=== PATIENT | male | born 1930 | race Caucasian/White ===

== ENCOUNTER → 2020-01-15 | Outpatient (CLI) | payer MEDICARE ==
[2020-01-15 07:33] LABS: MEAN CORP HGB 31.5 pg (26-34); RED CELL DISTRIBUTION WIDTH 17.4 % (11.5-14.5)
[2020-01-15 07:35] LABS: CALCIUM 8.3 mg/dL (8.4-10.5); CARBON DIOXIDE 26.2 mmol/L (20.0-32)
== END | disposition home or self-care (01) ==
LOC: NPLAB 07:11
PROVIDERS: ATTEND Family Medicine
DX: U07.1 COVID-19 (principal); I48.91 Unspecified atrial fibrillation; N17.9 Acute kidney failure, unspecified
CPT/HCPCS: 36415; 80053; 85027

== ENCOUNTER → 2020-01-18 | Outpatient (CLI) | payer MEDICARE ==
[2020-01-18 17:15] LABS: CALCIUM 7.9 mg/dL (8.4-10.5); CARBON DIOXIDE 25.5 mmol/L (20.0-32)
== END | disposition home or self-care (01) ==
LOC: NPLAB 15:00
PROVIDERS: ATTEND Family Medicine
DX: U07.1 COVID-19 (principal)
CPT/HCPCS: 36415; 80053

== ENCOUNTER → 2020-01-22 | Outpatient (CLI) | payer MEDICARE ==
[2020-01-22 11:20] LABS: MEAN CORP HGB 31.5 pg (26-34); RED CELL DISTRIBUTION WIDTH 17.1 % (11.5-14.5)
[2020-01-22 11:56] LABS: CALCIUM 8.2 mg/dL (8.4-10.5); CARBON DIOXIDE 28.3 mmol/L (20.0-32)
== END | disposition home or self-care (01) ==
LOC: NPLAB 11:01
PROVIDERS: ATTEND Family Medicine
DX: U07.1 COVID-19 (principal); N17.9 Acute kidney failure, unspecified
CPT/HCPCS: 36415; 80053; 85027

== ENCOUNTER → 2020-02-11 | Outpatient (CLI) | payer MEDICARE ==
[2020-02-11 17:18] LABS: MEAN CORP HGB 32.1 pg (26-34); RED CELL DISTRIBUTION WIDTH 18.7 % (11.5-14.5)
[2020-02-11 17:37] LABS: CALCIUM 9.1 mg/dL (8.4-10.5); CARBON DIOXIDE 33.3 mmol/L (20.0-32)
== END | disposition home or self-care (01) ==
LOC: NPLAB 16:27
PROVIDERS: ATTEND Family Medicine
DX: I50.9 Heart failure, unspecified (principal); N17.9 Acute kidney failure, unspecified
CPT/HCPCS: 36415; 80053; 85027

== ENCOUNTER → 2020-03-09 | Outpatient (CLI) | payer MEDICARE ==
[2020-03-09 15:49] LABS: APPEARANCE,URINE CLEAR (CLEAR); BILIRUBIN,URINE NEGATIVE (NEGATIVE); UA COLOR YELLOW (YELLOW)
[2020-03-09 15:50] LABS: UROBILINOGEN,URINE NORMAL (NEGATIVE)
== END | disposition home or self-care (01) ==
LOC: NPLAB 13:00
PROVIDERS: ATTEND Family Medicine
DX: N39.0 Urinary tract infection, site not specified (principal)
CPT/HCPCS: 81003

== ENCOUNTER 2020-03-13 17:53 | Inpatient (IN) | payer MEDICARE ==
[~2020-03-13] VITALS: Ht 182.9 cm; Wt 90.3 kg
--- NOTE | 2020-03-13 18:15 | NUR ---
ARRIVAL PT TO ROOM 3 VIA EMS TRANSFERRED FROM [facility] FOR ABNORMAL LABS. PER REPORT FROM CT. HGB 6.5 POTASSIUM 3.1. PT HAS PURPLE BRUISING ALL OVER BACK NUMEROUS SKIN TEARS ON RIGHT ARM AND RIGHT SHOULDER BLADE. PT HAS PRESSURE ULCER TO LEFT HEEL BLACK SCAB OVER. PT BUTTOCKS AND SACRAL AREA PINK. PT PLACED ON LEFT SIDE TO ALLEVIATE PRESSURE. PT HAS A PIMENTEL CATHETER WITH TALYA YELLOW URINE DRAINING. PT HAD A RAC 20G IV REMOVED WHEN PT ARRIVED NOT WORKING. 18G IV PLACED IN [facility] LABS DRAWN PT PLACED ON ROD AND TUBE STRAIGHTENER. EKG OBTAINED. AT BEDSIDE. PT A/OX2
[2020-03-13 18:17] VITALS: BP 119/78
--- NOTE | 2020-03-13 18:26 | ER.PDOC ---
General Chief Complaint: Requesting Medical Care Stated Complaint: ABNORMAL LABS TRAVEL OUT OF US: No Time seen by MD: 18:20 Source: patient, EMS, EMS notes reviewed, senior care records Exam Limitations: no limitations History of Present Illness Initial Comments Low hemoglobin and potassium at the [facility] on routine labs. Severity: moderate Associated Symptoms: denies symptoms Home Meds Reported Medications Apixaban (Eliquis) 5 Mg Tablet, 2.5 MG PO BID for A FIB, TABLET 03/13/20 Gabapentin (GABAPENTIN) 100 Mg Capsule, 1 CAP PO BID for PAIN, #90 CAP 2 Refills 03/13/20 Ascorbic Acid (VITAMIN C) 500 Mg Tablet, 500 MG PO BID 03/13/20 Ferrous Sulfate (FERROUSUL) 325 Mg Tablet, 1 TAB PO QD for 30 Days, #30 TAB 0 Refills 03/13/20 Sertraline Hcl (ZOLOFT) 25 Mg Tablet, 1 TAB PO DAILY, #30 TAB 1 Refill 03/13/20 Pantoprazole Sodium (PROTONIX) 40 Mg Tablet.dr, 1 TAB PO DAILY, #30 TAB 5 Refills 03/13/20 Lactobacillus Acidophilus (ACIDOPHILUS) 1 Each Capsule, 1 CAP PO QD for 14 Days, #14 CAP 0 Refills 03/13/20 Simvastatin (SIMVASTATIN) 20 Mg Tablet, 1 TAB PO HS, #30 TAB 5 Refills 03/13/20 Tamsulosin Hcl (FLOMAX) 0.4 Mg Cap.er.24h, 1 CAP PO DAILY, #30 CAP 11 Refills 03/13/20 Zinc (ZINC) 50 Mg Tablet, 1 TAB PO QD for 30 Days, #30 TAB 0 Refills 03/13/20 Electrolyte,Oral (PEDIALYTE) 1,000 Ml Solution, 240 MILLILITER PO DAILY24, #2000 MILLILITER 03/13/20 Metolazone (ZAROXOLYN) 5 Mg Tablet, 5 MG PO DAILY24, TABLET 03/13/20 Bumetanide (BUMETANIDE) 1 Mg Tablet, 1 TAB PO DAILY, #90 TAB 1 Refill 03/13/20 Past Medical History Medical History: cardiac problems, congestive heart failure Family History Significant Family History: no pertinent family hx Social History Smoking: non-smoker Alcohol Use: none Drug Use: none Review of Systems Constitutional: no symptoms reported EENTM: no symptoms reported Respiratory: no symptoms reported Cardiovascular: edema Gastrointestinal: no symptoms reported Genitourinary: no symptoms reported All Other Systems: Reviewed and Negative Physical Exam General Appearance: No Apparent Distress, WD/WN EENT: other (Pale conjunctivae) Neck: Non-Tender, Full Range of Motion, Supple, Normal Inspection Respiratory: chest non-tender, lungs clear, normal breath sounds, no respiratory distress, no accessory muscle use CVS: reg rate & rhythm, no murmur, pulses nml, nml capillary refill, murmur Gastrointestinal: Normal Bowel Sounds, No Organomegaly, No Pulsatile Mass, Non Tender Back: Normal Inspection Extremities: Normal Range of Motion, Pedal Edema (4+) Neurologic/Psychiatric: aviculturist II-XII NML as Tested, No Motor/Sensory Deficits, Alert, Normal Mood/Affect Skin: Ecchymosis (back), Other (left heel decubitus ulcer) Results/Orders Results/Orders Orders - ED GARCIA MD Cbc With Auto Diff (03/13/20 18:16) Comprehensive Metabolic Panel (03/13/20 18:16) Creatine Kinase (03/13/20 18:16) Creatine Kinase Mb (03/13/20 18:16) Troponin I (03/13/20 18:16) Probnp B-Type Instrumentation Supervisor (03/13/20 18:16) PT (03/13/20 18:16) Partial Thromboplastin Time. (03/13/20 18:16) Xr Chest 1v (03/13/20 18:16) Ekg-Routine (03/13/20 18:16) Stool Occult Blood(Ifobt) (03/13/20 18:16) Abo/Rh Type (03/13/20 18:28) Lrpc-Leukored Pk Cls (Pre-Marycarmen) (03/13/20 18:28) Orphenadrine Citrate (Norflex) (03/13/20 19:24) Lorazepam (Ativan) (03/13/20 19:27) Lorazepam (Ativan) (03/13/20 19:27) Vital Signs Date Time Temp Pulse Resp B/P (MAP) Pulse Ox O2 Delivery O2 Flow Rate FiO2 03/13/20 18:17 98.0 95 18 100 03/13/20 18:17 98.0 95 18 100 Laboratory Tests Test 03/13/20 18:16 White Blood Count 6.5 10^3/uL (4.5-11.0) Red Blood Count 2.12 10^6/uL (4.50-5.90) L Hemoglobin 6.7 g/dL (13.9-16.3) L Hematocrit 22.2 % (37.0-53.0) L Mean Corpuscular Volume 104.7 fL (78-100) H Mean Corpuscular Hemoglobin 31.6 pg (26-34) Mean Corpuscular Hemoglobin Concent 30.2 g/dL (33-36.5) L Red Cell Distribution Width 15.8 % (11.5-14.5) H Platelet Count 184 10^3/uL (150-400) Mean Platelet Volume 11.3 fL (7.8-11.0) H Neutrophils (%) (Auto) 63.3 % (41.0-85.0) Lymphocytes (%) (Auto) 22.6 % (24.0-44.0) L Monocytes (%) (Auto) 9.3 % (5.0-12.0) Neutrophils # (Auto) 4.1 10^3/uL (1.8-7.7) Lymphocytes # (Auto) 1.46 10^3/uL1 (1.0-4.8) Monocytes # (Auto) 0.6 10^3/uL (0.3-0.8) Absolute Immature Granulocyte (auto 0.02 10^3 u/L (0-2) Absolute Eosinophils (auto) 0.3 10^3/uL (0.0-0.2) H Immature Granulocytes % 0.30 % (0.00-0.50) Eosinophils % 3.9 % (0.0-5.0) Basophils % 0.6 % (0.0-0.2) H Basophils # 0.0 10^3/uL (0.0-0.1) Prothrombin Time 11.7 SEC (9.3-11.3) H Prothrombin Time INR (Non-Therap) 1.2 Activated Partial Thromboplast Time 28.3 SEC (24.67-30.72) Stool Occult Blood (IFOB) POSITIVE (NEGATIVE) Sodium Level 133 mmol/L (132-145) Potassium Level 3.3 mmol/L (3.6-5.2) L Chloride Level 95.0 mmol/L (96-109) L Carbon Dioxide Level 39.1 mmol/L (20.0-32) H Anion Gap 2.2 Blood Urea Nitrogen 25 mg/dL (7-18) H Creatinine 1.18 mg/dL (0.59-1.40) Estimated GFR () 70.3 (>/=60) Est GFR (CKD-EPI)(Non-Afr Eritrean) 58.1 (>/=60) BUN/Creatinine Ratio 21.0 Glucose Level 103 mg/dL (70-110) Calcium Level 8.1 mg/dL (8.4-10.5) L Total Bilirubin 0.6 mg/dL (0.2-1.0) Aspartate Amino Transferase (AST) 20 U/L (0-35) Alanine Aminotransferase (ALT) 13 U/L (12-78) Alkaline Phosphatase 191 U/L (50-136) H Total Creatine Kinase 39 U/L (39-308) Creatine Kinase MB 2.0 ng/mL (0.5-3.6) Troponin I 0.10 ng/mL (0.00-0.05) H Pro-B-Type Natriuretic Peptide 7573 pg/mL (0-450) H Total Protein 6.4 g/dL (6.4-8.2) Albumin 2.4 g/dL (3.4-5.0) L Globulin 4.0 Albumin/Globulin Ratio 0.600 Blood Bank Test 03/13/20 18:05 Antibody Screen NEGATIVE Blood Product Summary Counts Blood Type B NEGATIVE Progress Progress CXR: CHF pattern with pulmonary vascular congestion, cardiomegaly and layering pleural effusions. 2. Interstitial and airspace edema, underlying basilar pneumonia not excluded in the appropriate clinical setting. EKG/XRAY/CT/US EKG: no ST T wave changes EKG Comments: HR 70, ventricular paced rythm ER DEPART Departure Time of Disposition: 19:52 Disposition: 09 ADMITTED INPATIENT Impression: Primary Impression: GI bleed Additional Impressions: Anemia Fluid overload CHF exacerbation Elevated troponin Condition: Stable Referrals: VALE PAULINO (PCP) PRIMARY CARE PROVIDER Comments Admitted to Dr. Esquivel, spoke with Dr. Perez who will consult. Duration or Time Spent with Pa: 60 min Critical Care Note Total Time (mins): 30 Problem Qualifiers Primary Impression: GI bleed GI bleed type/associated pathology: unspecified gastrointestinal hemorrhage type Qualified Codes: K92.2 - Gastrointestinal hemorrhage, unspecified Additional Impressions: Anemia Anemia type: unspecified type Qualified Codes: D64.9 - Anemia, unspecified Fluid overload Hypervolemia type: unspecified Qualified Codes: E87.70 - Fluid overload, unspecified CHF exacerbation Heart failure type: unspecified Qualified Codes: I50.9 - Heart failure, unspecified ED GARCIA MD Mar 13, 2020 18:26
--- NOTE | 2020-03-13 18:29 | PCM.EKG ---
[facility] Test Date: 2020-03-13 Test Time: 18:25:48 Pat Name: HEBERT MEYER Department: Room: 234 Gender: M Network Communications Engineer: MIRIAM : 1930 Requested By: ED GARCIA Order Number: [id number] Reading MD: Ed GARCIA Measurements Intervals [place] Rate: 70 P: 0 MD: 178 QRS: -75 QRSD: 156 T: 74 QT: 438 QTc: 473 Interpretive Statements Ventricular-paced rhythm No further analysis attempted due to paced rhythm Baseline wander in lead(s) V4 No previous ECG available for comparison Electronically Signed On 03-13-2020 22:25:31 PLUNGER SCOOP OPERATOR by Ed GARCIA Please click the below link to view image of tracing.
[2020-03-13 18:32] LABS: BASOPHIL % 0.6 % (0.0-0.2); EOSINOPHIL # 0.3 10^3/uL (0.0-0.2); EOSINOPHIL % 3.9 % (0.0-5.0); LYMPHOCYTES # 1.46 10^3/uL1 (1.0-4.8); LYMPHOCYTES % 22.6 % (24.0-44.0); MEAN CORP HGB 31.6 pg (26-34); MONOCYTES # 0.6 10^3/uL (0.3-0.8); MONOCYTES % 9.3 % (5.0-12.0); NEUTROPHIL # 4.1 10^3/uL (1.8-7.7); NEUTROPHILS % 63.3 % (41.0-85.0); PLATELET COUNT 184 10^3/uL (150-400); RED CELL DISTRIBUTION WIDTH 15.8 % (11.5-14.5)
--- NOTE | 2020-03-13 18:45 | DIREP ---
PROCEDURE:CHEST 1 VIEW COMPARISON:[facility], CR, XRAY CHEST SINGLE VW, 11/10/2015, 06:27 PM. INDICATIONS:Edema FINDINGS: LUNGS/PLEURA:Moderate bilateral layering pleural effusions. Airspace infiltrates in the lower lung zones not excluded. No pneumothorax. VASCULATURE:Moderate pulmonary vascular congestion. CARDIAC:Cardiomegaly with multi lead left subclavian pacer device. MEDIASTINUM:Atherosclerotic aorta with no visible aneurysm. BONES:Bilateral shoulder girdle degenerative changes. OTHER:Negative. CONCLUSION: 1. CHF pattern with pulmonary vascular congestion, cardiomegaly and layering pleural effusions. 2. Interstitial and airspace edema, underlying basilar pneumonia not excluded in the appropriate clinical setting. Dictated by: Dru Villaseñor M.D. on 03/13/2020 at 06:42 PM
[2020-03-13] MEDS ORDERED: SERT25TA PO (18:46)
[2020-03-13] MEDS ORDERED: ELEC1000 PO (18:46)
[2020-03-13] MEDS ORDERED: TAMS-14 PO (18:46)
[2020-03-13] MEDS ORDERED: LACT1CAP4 PO (18:46)
[2020-03-13] MEDS ORDERED: ZINC50TA42 PO (18:46)
[2020-03-13] MEDS ORDERED: ASCO500T4 PO (18:46)
[2020-03-13] MEDS ORDERED: APIX5TAB PO (18:46)
[2020-03-13] MEDS ORDERED: SIMV20TA19 PO (18:46)
[2020-03-13] MEDS ORDERED: GABA100C7 PO (18:46)
[2020-03-13] MEDS ORDERED: BUME1TAB3 PO (18:46)
[2020-03-13] MEDS ORDERED: FERR325T98 PO (18:46)
[2020-03-13] MEDS ORDERED: PANT40TA3 PO (18:46)
[2020-03-13] MEDS ORDERED: METO5TAB5 PO (18:46)
[2020-03-13 18:59] LABS: CALCIUM 8.1 mg/dL (8.4-10.5); CARBON DIOXIDE 39.1 mmol/L (20.0-32)
[2020-03-13] MEDS ORDERED: NORFLEX ONE (19:24)
[2020-03-13] MEDS ORDERED: ATIVAN PO STA (19:27)
[2020-03-13] MEDS ORDERED: ATIVAN ONE (19:27)
--- NOTE | 2020-03-13 19:42 | NUR ---
DR. NESSA HANNAH MBA ON THE PHONE WITH SURGEON REGARDING PATIENT CONDITION, STATES HE IS COMFORTABLE CONSULTING ON THE PATIENT IF REQUIRED BY HOSPITALIST FOR ADMISSION.
--- NOTE | 2020-03-13 19:50 | NUR ---
DR. ROWE ACCEPTED PATIENT FOR ADMISSION TO [facility].
[2020-03-13] MEDS ORDERED: LASIX IV STA (19:55)
[2020-03-13] MEDS ORDERED: ATIVAN IV STA (19:55)
[2020-03-13] MEDS ORDERED: LASIX ONE (20:00)
--- NOTE | 2020-03-13 20:30 | NUR ---
Pt up on unit via transfer on stretcher from Emergency department at this time. Received report from CARIN Li. Pt is stable at this time, but in need of a blood transfusion at this time. Lab was notified and blood is ready for transfusion at this time. Pt settled in bed, and admission started. Bed low, locked, call light within reach. This nurse will continue to monitor.
[2020-03-13] MEDS ORDERED: NS 250ML 250 ML IV ONE (21:05)
[2020-03-13] MEDS ORDERED: TYLENOL PO PRN (21:30)
[2020-03-13] MEDS: FERROUS SULFATE PO SCH (21:30)
[2020-03-13] MEDS: VITAMIN C PO SCH (21:30)
[2020-03-13 21:39] VITALS: BP 130/67
--- NOTE | 2020-03-13 21:42 | NUR ---
Received first unit of O Negative blood from lab, and started transfusion of first unit at this time. Pt is stable, and has no s/s of acute distress at this time. This nurse will continue to monitor pt for first 15 minutes of transfusion, and keep a close eye on pt's VS. Bed low, locked, call light within reach. Pt has no questions or concerns at this time.
[2020-03-13 22:00] VITALS: BP 127/57
[2020-03-13] MEDS: PROTONIX IV IV SCH (22:30)
[2020-03-14] VITALS (8 sets, daily range): BP systolic 113–138; BP diastolic 57–78
--- NOTE | 2020-03-14 02:06 | NUR ---
STATUS Received call from Lab stating that pt's HGB was 6.8 at this time. This nurse to initiate second unit of PRBCs. Will continue to monitor.
[2020-03-14] MEDS ORDERED: NS 250ML 250 ML IV ONE (02:09)
--- NOTE | 2020-03-14 02:36 | NUR ---
STATUS Second unit of blood initiated at this time, witnessed by Dillon DEL ROSARIO. Pt VS as documented. Pt is tolerating blood transfusion well. Pt shows no s/s of acute distress. This nurse will continue to monitor. Bed low locked, call light within reach. No questions or concerns at this time.
--- NOTE | 2020-03-14 05:07 | PCM.HP ---
History of Present Illness Reason for Visit: abnormal labs History of Present Illness Pt is a 89 y/o M with PMHx of HFrEF, CAD, Afib on Eliquis, HTN, HLD, and prior GI bleeding, who presents after having routine lab at his assisted, which revealed severe anemia of 6.5. The patient himself is asymptomatic and hemodynamically stable. However, he is incredibly hard of hearing and getting a full history and review of systems was very difficult. Per Chart review, it appears that his Hb has been gradually trending down over the last several months. His Hb was initially 9.7 in December, then 8.7 a week later, and dropped again to 7.6 in January. He has apparently had GI bleeding in the past, but is still on Eliquis despite this. In the ED, he was hemodynamically stable and asymptomatic. Labs were notable for repeat Hb of 6.7, MCV 104, stool occult positive. No leukocytosis. BNP > 7000, trop 0.10. His bicarb is notably high at 39, but he reports no diarrhea or urinary symptom. He was noted to have significant LE pitting edema, and CXR showed interstitial and alveolar pulmonary edema consistent with "CHF pattern with pulmonary vascular congestion, cardiomegaly and layering pleural effusions...underlying pneumonia not excluded". He was admitted to inpatient medicine for severe anemia, probable UGIB, and acute exacerbation of CHF Review of Systems Allergies: Coded Allergies: Penicillins (Verified Allergy, Intermediate, Rash, 03/13/20) Scheduled Apixaban (Eliquis), 2.5 MG PO BID, (Reported) Ascorbic Acid (Vitamin C), 500 MG PO BID, (Reported) Bumetanide (Bumetanide), 1 TAB PO DAILY, (Reported) Electrolyte,Oral (Pedialyte), 240 MILLILITER PO DAILY24, (Reported) Ferrous Sulfate (Ferrousul), 1 TAB PO QD, (Reported) Gabapentin (Gabapentin), 1 CAP PO BID, (Reported) Lactobacillus Acidophilus (Acidophilus), 1 CAP PO QD, (Reported) Metolazone (Zaroxolyn), 5 MG PO DAILY24, (Reported) Pantoprazole Sodium (Protonix), 1 TAB PO DAILY, (Reported) Sertraline Hcl (Zoloft), 1 TAB PO DAILY, (Reported) Simvastatin (Simvastatin), 1 TAB PO HS, (Reported) Tamsulosin Hcl (Flomax), 1 CAP PO DAILY, (Reported) Zinc (Zinc), 1 TAB PO QD, (Reported) VTE VTE Risk Total Score: >5 VTE Risk Score VTE Risk: Score 0-1 = Low Risk (Aggressive mobilization; early ambulation; no VTE prophylaxis required) Score 2: Moderate Risk (Intermittent/Pneumatic Compression Device OR Lovenox/Heparin/Coumadin) Score 3-4: High Risk (Intermittent/Pneumatic Compression Device AND Lovenox/Heparin/Coumadin) Score > or =5: Highest Risk (Intermittent/Pneumatic Compression Device AND Lovenox/Heparin/Coumadin) VTE VTE Present on Admission: Yes Currently receiving anticoagul: No VTE Risk Total Score: >5 Exam Vital Signs Vital Signs Date Time Temp Pulse Resp B/P (MAP) Pulse Ox O2 Delivery O2 Flow Rate FiO2 03/14/20 02:51 97.8 70 23 137/68 03/14/20 00:28 99 03/13/20 21:09 Nasal Cannula 2.00 Assessment/Plan Assessment/Plan Assessment/Plan Pt is a 89 y/o M with PMHx of HFrEF, CAD, Afib on Eliquis, HTN, HLD, and prior GI bleeding, was admitted for severe anemia, probable UGIB, and acute exacerbation of CHF. He was given IV lasix in the ED and a franco catheter placed for strict I/O. At this time, he is to receive 2u pRBCs, and Hb will be checked 1h post-transfusion. Special care will need to be made to ensure he does not get increasingly volume overloaded with successive transfusions. Regarding his likely GI bleed, if his bleeding does not slow off of Eliquis, he may need to be scoped; at which point he may need transfer for higher level of care and endoscopic intervention. In order to get an idea of his iron status and evaluate his macrocytosis, hematology lab was called and asked to run an Iron panel, B12/folate, and peripheral smear on the initial blood sample in the ED [before transfusions]. # Severe Anemia, multifactorial # UGIB # Acute on Chronic CHF exacerbation # Macrocytosis # Iron Deficiency # folate deficiency # Metabolic Alkalosis Plan: - admit to inpatient medicine - will transfuse 2u pRBCs on medical floor. Given AE CHF, will transfuse to Hb > 8 - If pt continues to bleed or requires additional pRBCs, may consider FFP or TXA - transfer to ICU for Octreotide gtt could also be considered. - hold eliquis - PPI BID - consider Gen Surg consult in AM for endoscopy vs transfer for GI - IV Lasix 40 QD for now; monitor his Alkalosis closely with additional diuresis to ensure he is not simply intravascularly depleted or third-spacing. - obtain 2D ECHO - fluid restriction/salt restriction - daily weights / strict I/O - continue home flomax, sertraline, lipitor, vitamin C, and iron supplement - will start PO Folate 1g daily for folate deficiency VTE ppx: none GI ppx: PPI BID Diet: cardiac CODE: savings teller spent: > 70 minutes spent in chart review, patient evaluation, coordination of care, and documentation CHAPIS ZAIDI MD Mar 14, 2020 05:07
[2020-03-14 06:12] LABS: BASOPHIL # 0.1 10^3/uL (0.0-0.1); BASOPHIL % 0.9 % (0.0-0.2); EOSINOPHIL # 0.2 10^3/uL (0.0-0.2); LYMPHOCYTES % 20.9 % (24.0-44.0); MEAN CORP HGB 31.1 pg (26-34); MONOCYTES # 0.5 10^3/uL (0.3-0.8); MONOCYTES % 9.5 % (5.0-12.0); NEUTROPHIL # 3.5 10^3/uL (1.8-7.7); NEUTROPHILS % 65.5 % (41.0-85.0); PLATELET COUNT 160 10^3/uL (150-400); RED CELL DISTRIBUTION WIDTH 19.4 % (11.5-14.5)
[2020-03-14 06:27] LABS: CALCIUM 8.1 mg/dL (8.4-10.5)
[2020-03-14] MEDS ORDERED: LASIX IV SCH (09:00)
[2020-03-14] MEDS: PROTONIX IV IV SCH ×2 (09:10→20:16)
[2020-03-14] MEDS: POTASSIUM CHLORIDE PO SCH (09:10)
[2020-03-14] MEDS: VITAMIN C PO SCH ×2 (09:11→20:17)
[2020-03-14] MEDS: FLOMAX PO SCH (09:11)
[2020-03-14] MEDS: FOLIC ACID PO SCH (09:11)
[2020-03-14] MEDS: ZOLOFT PO SCH (09:15)
--- NOTE | 2020-03-14 10:01 | PCM.ECHO ---
APPROVED REPORT EXAM: Comprehensive 2D, Doppler, and color-flow Echocardiogram. Patient Location: IN-PATIENT Indications Congestive Heart Failure 2D Dimensions LVOT Diameter 2.11 (1.8-2.4cm) LVEF(%) 37.70 (>50%) M-Mode Dimensions RVDd 3.20 (2.1-3.2cm) Left Atrium(MM) 6.65 (2.5-4.0cm) IVSd 1.45 (0.7-1.1cm) Aortic Root 2.55 (2.2-3.7cm) LVDd 6.30 (4.0-5.6cm) Aortic Cusp Exc 1.00 (1.5-2.0cm) PWd 0.95 (0.7-1.1cm) MV EPSS 1.52 (<0.5cm) IVSs 2.35 cm FS (%) 30.05 % LVDs 4.40 (2.0-3.8cm) ESV(Teich) 88.03 ml PWs 1.35 cm LVEF(%) 56.28 (>50%) Volumes Biplane 2D LV Volumes Biplane 2D LA Volumes LVEDv A4C 143.80 mL LA ESV Index LVESv A4C 89.59 mL Aortic Valve AoV Peak [place]. 1.80 m/s AoV VTI 33.65 cm AO Peak GR. 12.95 mmHg AO Mean GR. 7.20 mmHg LVOT VTI 14.66 cm LVOT Peak [place]. 0.69 m/s RIMMA(VTI)/BSA 1.52 cm2/m2 RIMMA (VTI) 1.52 cm2 Mitral Valve MV E Velocity 1.50m/s MR Peak Gr. 106.90mmHg Pulmonary Valve PV Peak Velocity 0.80m/s PV Peak Grad. 2.85mmHg RVOT VTI 16.67cm Tricuspid Valve TR P. Velocity 3.35m/s RAP ESTIMATE 10.00mmHg TR Peak Gr. 45.79mmHg RVSP 55.79mmHg LEFT VENTRICLE The left ventricle is normal size. Left ventricular systolic function is mild to moderately decreased. There is normal left ventricular wall thickness. There is global hypokinesis of the left ventricle. There is no ventricular septal defect visualized. No left ventricle thrombus noted on this study. LVEF is 40-45%. RIGHT VENTRICLE The right ventricle is normal size. Right ventricular systolic function is mildly reduced. There is normal right ventricular wall thickness. ATRIA Left atrium is severely dilated. Right atrium is severely dilated. The interatrial septum is intact with no evidence for an atrial septal defect. AORTIC VALVE Aortic valve leaflets are sclerotic with decreased opening. Mild aortic stenosis. No aortic regurgitation is present. There is no aortic valvular vegetation. MITRAL VALVE The mitral valve is normal in structure. There is no mitral valve stenosis. Severe mitral regurgitation. There is no evidence of mitral valve vegetations. TRICUSPID VALVE The tricuspid valve is normal in structure. There is no tricuspid valve stenosis. Severe tricuspid regurgitation. Moderate pulmonary hypertension. There is no tricuspid valve vegetations. PULMONIC VALVE The pulmonary valve is normal in structure. There is no pulmonic valvular stenosis. Moderate to severe pulmonic regurgitation. There is no pulmonic valve vegetations. GREAT VESSELS The aortic root is normal in size. The pulmonary artery is normal. Aortic arch is not well visualized. IVC is dilated. PERICARDIUM Mild circumferential pericardial effusion. No echo indications of pericardial tamponade. Large left pleural effusion. Other Information Study Quality: Fair <Conclusion> Left ventricular systolic function is mild to moderately decreased. LVEF is 40-45%. There is global hypokinesis of the left ventricle. Left atrium is severely dilated. Right atrium is severely dilated. Mild aortic stenosis. Severe mitral regurgitation. Severe tricuspid regurgitation. Moderate to severe pulmonic regurgitation. Mild circumferential pericardial effusion. No echo indications of pericardial tamponade. Large left pleural effusion. Moderate pulmonary hypertension. Electronically signed by : NATACHA GONZALES. 03/14/2020 10:01:08
--- NOTE | 2020-03-14 10:17 | NUR ---
Sbar report received from nurse Nesha DEL ROSARIO. patient is in bed aox4 able to make needs known. denies pain at this time. assessment completed no sign of distress noted. see flowsheet for vitals. redness noted to sacral area, and upper back. wound to left heal. wound nurse to assess. safety measures in place will continue to monitor..computer systems information director RN
--- NOTE | 2020-03-14 12:20 | DIREP ---
PROCEDURE:CT CHEST W/O COMPARISON:[facility], CR, XRAY CHEST SINGLE VW, 03/13/2020, 06:29 PM. [facility], CR, XRAY CHEST SINGLE VW, 10/26/2015, 11:39 AM. INDICATIONS:LEFT PLEURAL EFFUSION TECHNIQUE:Helical sections through the chest were performed from the lung apices through the diaphragms without IV contrast. Sagittal and coronal reconstructions are obtained from source images. FINDINGS: LUNGS:Regions of dependent consolidation, especially both lower lobes and lingula. Central airways are grossly patent, with small amounts mucus along the left lateral aspect of the trachea at the level of the thoracic inlet. PLEURA:Large bilateral effusions, right slightly greater than left. CARDIAC:Cardiomegaly, post interventional changes. No pericardial effusion. Extensive coronary artery calcifications MEDIASTINUM:Small precarinal lymph nodes. SOFIA:Normal. No mass or adenopathy. AORTA:Atherosclerotic changes aorta. CHEST WALL:Normal. No mass or axillary adenopathy. LIMITED ABDOMEN:Normal. Limited images of the upper abdomen are unremarkable. BONES:Normal. No bony lesion or fracture. OTHER:Negative. CONCLUSION:Cardiomegaly, post interventional changes. There are large bilateral pleural effusions, with regions of consolidation. Presumably the findings are secondary to congestive heart failure. Dictated by: Waldo Conway MD on 03/14/2020 at 12:16 PM
--- NOTE | 2020-03-14 14:46 | NUR ---
Patient transported up to the 3rd floor room 341 in stable condition. Sbar report given to nurse Suha DEL ROSARIO..uzma DEL ROSARIO
[2020-03-14] MEDS ORDERED: LASIX IV STA (15:06)
[2020-03-14 16:11] LABS: MEAN CORP HGB 30.5 pg (26-34); RED CELL DISTRIBUTION WIDTH 19.3 % (11.5-14.5)
[2020-03-14 16:29] LABS: CALCIUM 8.1 mg/dL (8.4-10.5); CARBON DIOXIDE 40.9 mmol/L (20.0-32)
--- NOTE | 2020-03-14 17:16 | NUR ---
PATIENT ARRIVED TO THE UNIT IN STABLE CONDITION. THIS RN did head to jameson assessment, patient has scattered brusing over body, skin tear on shoulder blades, left heel there is a pressure sore, bilateral heels have been floated to prevent further injury. During assessment, it has been noted that the patients foreskin is out of place causing swelling on the penis. Elsy the charge nurse has been notified per protocol. patient ate and drank without difficulty. Patient is resting in bed at this time, will continue to monitor
--- NOTE | 2020-03-14 17:50 | NUR ---
DR DUDLEY BUCKNER NOTIFIED OF UROLOGY CONSULT.
--- NOTE | 2020-03-14 17:55 | NUR ---
DR DUDLEY BUCKNER IN ROOM TO SEE PT, DR BUCKNER MANUALLY MANIPULATED PENIS BACK IN PROPER PLACE. STATES, "PLACE ICE PACKS ON PENIS TO REDUCE SWELLING AND MAKE SURE THAT THE PENIS STAYS IN PLACE." NO S/S OF DISTRESS NOTED.
--- NOTE | 2020-03-14 19:30 | NUR ---
DOCTOR CONTACTED In shift report we were told if Pt penis began to come out of the foreskin because of the extensive swelling that we were to push it back in. Upon examination at the beginning of the shift there was a bulge of swollen skin protruding from the penis. Dr. Lopez was contacted and she told me that she was not on and that I needed to call Dr. Esquivel. Dr. Esquivel did not answer the phone. Then I was informed that Dr. Lopez was the hospitalist sean, when contacted again there was no answer
[2020-03-14] MEDS: COREG PO SCH (20:17)
[2020-03-14] MEDS: SEROQUEL PO SCH (20:17)
[2020-03-14] MEDS: LIPITOR PO SCH (20:17)
[2020-03-14] MEDS: LASIX IV SCH (20:17)
[2020-03-14] MEDS: FERROUS SULFATE PO SCH (20:32)
--- NOTE | 2020-03-14 20:37 | NUR ---
PROGRESS NOTE Report received from CARIN Borden. Upon entering the room, this RN observed pt lying in bed resting. Head to toe assessment performed. Lung sound v did head to jameson assessment, patient has scattered brusing over body, skin tear on shoulder blades, left heel there is a pressure sore, bilateral heels have been floated to prevent further injury. During assessment, it has been noted that the patients foreskin is out of place causing swelling on the penis. Elsy the charge nurse has been notified per protocol. patient ate and drank without difficulty. Patient is resting in bed at this time, will continue to monitor Addendum: 03/14/20 at 2116 by Mikey Callejas RN RN PROGRESS NOTE Report received from CARIN Borden. Upon entering the room, this RN observed pt lying in bed resting. Head to toe assessment performed. Lung sound clear all five lobes, SPO2 97% pt on 2L NC. Pt A&O x3 Skin warm and dry with moderate bruising on bilateral arms, back, and shoulders. Skin tear on right arm, shoulders, and redness to coccyx and left heel. 1+ pitting edema bilateral lower extremities and left upper arm. Regular HR S1, S2 noted. Abd. soft, non distended, non tender. RN observed the penis swollen with foreskin trapped behind the head of the penis. [place] lubricating jelly used to placed head of penis back into foreskin as comfortably as possible. When asked about pain, pt states "it doesn't hurt right now." Will continue to monitor pt condition.
[2020-03-15 00:47] VITALS: BP 120/57
[2020-03-15 05:37] VITALS: BP 118/62
[2020-03-15 07:18] VITALS: BP 115/65
[2020-03-15] MEDS: LASIX IV SCH ×2 (08:01→20:18)
[2020-03-15] MEDS: PROTONIX IV IV SCH ×2 (08:01→20:18)
[2020-03-15] MEDS: ZOLOFT PO SCH (08:02)
[2020-03-15] MEDS: SEROQUEL PO SCH ×2 (08:02→20:18)
[2020-03-15] MEDS: VITAMIN C PO SCH ×2 (08:02→20:16)
[2020-03-15] MEDS: COREG PO SCH ×2 (08:02→20:17)
[2020-03-15] MEDS: FLOMAX PO SCH (08:02)
[2020-03-15] MEDS: POTASSIUM CHLORIDE PO SCH (08:33)
[2020-03-15 09:12] LABS: MEAN CORP HGB 30.8 pg (26-34); RED CELL DISTRIBUTION WIDTH 18.6 % (11.5-14.5)
[2020-03-15] MEDS ORDERED: KCL 20MEQ/100ML 100 ML IV ONE ×2 (09:30→12:46)
[2020-03-15 09:32] LABS: CALCIUM 8.4 mg/dL (8.4-10.5); CARBON DIOXIDE 40.5 mmol/L (20.0-32)
[2020-03-15 11:29] VITALS: BP 121/68
[2020-03-15] MEDS ORDERED: NS 500ML 500 ML IV ONE (12:52)
[2020-03-15] MEDS: FOLIC ACID PO SCH (12:54)
[2020-03-15 16:25] VITALS: BP 123/68
--- NOTE | 2020-03-15 16:26 | PRM.PN ---
PROGRESS NOTE S/O/A/P Chief complaint: Severe anemia. Subjective: He feels well no specific complaint. He keeps asking to go back to retirement because he is worried about his and son. Denied any chest pain or nadeem rtness of breath. Denies any penis pain. Last night he had issues with the swelling of the penis and the skin of the forehead was pulled back.. The urologist came to the room and fix the problem. Objective: Vital Signs Date Time Temp Pulse Resp B/P (MAP) Pulse Ox O2 Delivery O2 Flow Rate FiO2 03/15/20 11:29 97.5 69 18 121/68 (85) 99 03/15/20 07:47 Nasal Cannula 2.00 03/14/20 21:23 28 GENERAL:Fully awake and oriented to place and time..no distress. not agitated. HEENT: NC/AT. PERRLA. EOMI. MMM. Neck is supple. LUNGS: CTAB. Basal Rales with diminished air entry on both sides. No sign of respiratory distress or cyanosis. HEART: Normal S1S2. No murmurs, rubs, gallops. ABDOMEN: Soft. No rebound or guarding. Normal BS throughout. EXTREMITIES: ++ pitting edema. Skin: Edema around the penis. NEUROLOGIC: No focal deficit noticed on observation.moving all 4 extremities equally. Laboratory Tests Test 03/14/20 23:24 03/15/20 08:53 Hemoglobin 7.3 g/dL 8.0 g/dL White Blood Count 4.8 10^3/uL Red Blood Count 2.60 10^6/uL Hematocrit 25.5 % Mean Corpuscular Volume 98.1 fL Mean Corpuscular Hemoglobin 30.8 pg Mean Corpuscular Hemoglobin Concent 31.4 g/dL Red Cell Distribution Width 18.6 % Platelet Count 150 10^3/uL Mean Platelet Volume 11.2 fL Sodium Level 136 mmol/L Potassium Level 3.2 mmol/L Chloride Level 93.0 mmol/L Carbon Dioxide Level 40.5 mmol/L Anion Gap 5.7 Blood Urea Nitrogen 24 mg/dL Creatinine 1.17 mg/dL Estimated GFR () 71.0 Est GFR (CKD-EPI)(Non-Afr Welsh) 58.7 BUN/Creatinine Ratio 20.0 Glucose Level 104 mg/dL Calcium Level 8.4 mg/dL Total Bilirubin 0.9 mg/dL Aspartate Amino Transf (AST/SGOT) 15 U/L Alanine Aminotransferase (ALT/SGPT) 9 U/L Alkaline Phosphatase 133 U/L Total Protein 6.0 g/dL Albumin 2.3 g/dL Globulin 3.7 Albumin/Globulin Ratio 0.621 Current Medications Medications (Trade) Dose Ordered Sig/Robin Route PRN Reason Start Time Stop Time Status Last Admin Dose Admin Orphenadrine Citrate (Norflex) 60 mg STK-MED ONCE .ROUTE 03/13/20 19:24 03/13/20 19:25 DC Lorazepam (Ativan) 2 mg STK-MED ONCE .ROUTE 03/13/20 19:27 03/13/20 19:27 DC Lorazepam (Ativan) 0.5 mg STAT STAT PO 03/13/20 19:27 03/13/20 19:57 DC Lorazepam (Ativan) 0.5 mg STAT STAT IV 03/13/20 19:55 03/13/20 19:57 DC 03/13/20 19:50 Furosemide (Lasix) 40 mg STAT STAT IV 03/13/20 19:55 03/13/20 19:57 DC 03/13/20 20:03 Furosemide (Lasix) 40 mg STK-MED ONCE .ROUTE 03/13/20 20:00 03/13/20 20:00 DC Sodium Chloride 250 ml @ ud STK-MED ONCE IV 03/13/20 21:05 03/13/20 21:06 DC Acetaminophen (Tylenol) 1,000 mg Q6H PRN PO PAIN 1 - 3 03/13/20 21:30 04/12/20 21:29 03/14/20 12:34 Ascorbic Acid (Vitamin C) 500 mg BID PO 03/13/20 21:30 04/12/20 21:29 03/15/20 08:02 Ferrous Sulfate (Ferrous Sulfate) 325 mg QD PO 03/13/20 21:30 04/12/20 21:29 03/14/20 20:32 Sertraline HCl (Zoloft) 25 mg DAILY PO 03/14/20 09:00 04/13/20 08:59 03/15/20 08:02 Tamsulosin HCl (Flomax) 0.4 mg DAILY PO 03/14/20 09:00 04/13/20 08:59 03/15/20 08:02 Atorvastatin Calcium (Lipitor) 10 mg HS PO 03/14/20 21:00 04/13/20 20:59 03/14/20 20:17 Pantoprazole Sodium (Protonix Iv) 40 mg BID IV 03/13/20 22:00 04/12/20 21:59 03/15/20 08:01 Sodium Chloride 250 ml @ ud STK-MED ONCE IV 03/14/20 02:09 03/14/20 02:17 DC Folic Acid (Folic Acid) 1 mg DAILY PO 03/14/20 09:00 04/13/20 08:59 03/15/20 12:54 Furosemide (Lasix) 40 mg DAILY IV 03/14/20 09:00 03/14/20 15:09 DC 03/14/20 09:11 Potassium Chloride (Potassium Chloride) 40 meq DAILY PO 03/14/20 09:00 04/13/20 08:59 03/15/20 08:33 Furosemide (Lasix) 40 mg STAT STAT IV 03/14/20 15:06 03/14/20 15:09 DC Furosemide (Lasix) 40 mg BID IV 03/14/20 21:00 04/13/20 20:59 03/15/20 08:01 Carvedilol (Coreg) 3.125 mg BID PO 03/14/20 21:00 04/13/20 20:59 03/15/20 08:02 Quetiapine Fumarate (Seroquel) 25 mg BID PO 03/14/20 21:00 04/13/20 20:59 03/15/20 08:02 Potassium Chloride 100 ml @ 50 mls/hr OT ONCE IV 03/15/20 09:30 03/15/20 11:29 DC 03/15/20 12:57 Potassium Chloride 100 ml @ ud STK-MED ONCE IV 03/15/20 12:46 03/15/20 12:46 DC Sodium Chloride 500 ml @ ud STK-MED ONCE IV 03/15/20 12:52 03/15/20 12:52 DC <Conclusion> Left ventricular systolic function is mild to moderately decreased. LVEF is 40-45%. There is global hypokinesis of the left ventricle. Left atrium is severely dilated. Right atrium is severely dilated. Mild aortic stenosis. Severe mitral regurgitation. Severe tricuspid regurgitation. Moderate to severe pulmonic regurgitation. Mild circumferential pericardial effusion. No echo indications of pericardial tamponade. Large left pleural effusion. Moderate pulmonary hypertension. Assessment/Plan Pt is a 89 y/o M with PMHx of HFrEF, CAD, Afib on Eliquis, HTN, HLD, and prior GI bleeding, was admitted for severe anemia, probable UGIB, and acute exacerbation of CHF. # Severe Anemia: It is multifactorial. There is no evidence of upper GI bleeding by observation during hospital stay. His hemoglobin remained stable after transfusion. Given his age and comorbidity he has baseline anemia of chronic disease. And he has had previous history of GI bleeding. plan: -Continue monitoring his hemoglobin status every 12 hours. Continue monitoring vitals and any signs of active bleeding. - I am not sure if he had any colonoscopy done the last few in the near past but he might need colonoscopy as outpatient # Acute on Chronic Systolic CHF exacerbation: He is stable on 2 L nasal cannula. He feels weak in general. He is not active at baseline. His quality of life is poor to start with. plan: - Continue Lasix 40 mg twice daily. Monitor kidney function and potassium level. -Continue Coreg 3.125 mg twice daily. -Start lisinopril 5 mg p.o. daily. -We will monitor his vitals and fluid balance concerned about overdiuresis. -Cardiology consult. # Hypokalemia: Will be replaced. #Bilateral pleural effusion: Most likely secondary to CHF. We will continue diuresis with Lasix. No need for therapeutic thoracentesis at this point. # Chronic A. fib: EKG showed paced rhythm. Giving the history of severe anemia and GI bleeding we will stop Eliquis. # Macrocytosis # Iron Deficiency # folate deficiency # Metabolic Alkalosis #BPH - continue home flomax, sertraline, lipitor, vitamin C, and iron supplement - will start PO Folate 1g daily for folate deficiency VTE ppx: none GI ppx: PPI BID Diet: cardiac CODE: FULL JIHAN CONNER MD Mar 15, 2020 16:26
[2020-03-15] MEDS: ZESTRIL PO SCH (17:00)
[2020-03-15 17:08] LABS: ABG PCO2 64.2 mmHg (35.0-45.0); BE(B) 17.3 mmol/L (-2.0-2.0); HCO3act 43.6 mmol/L (22.0-26.0); pO2 94.5 mmHg (80.0-100.0)
[2020-03-15] MEDS ORDERED: DIAMOX PO ONE (17:30)
--- NOTE | 2020-03-15 17:32 | PRM.PN ---
PROGRESS NOTE S/O/A/P I discussed CODE STATUS with both sons. Miguel Ángel has power of corporate associate attorney for his health issues. He mentioned that he wanted him to be DNR and he was not sure why we are having him on full CODE STATUS. CODE STATUS will be changed to DNR. JIHAN CONNER MD Mar 15, 2020 17:32
[2020-03-15] MEDS ORDERED: DIAMOX ONE (18:58)
[2020-03-15 19:30] VITALS: BP 116/65
--- NOTE | 2020-03-15 19:44 | DIET.OP ---
Nutrition Asmt/Malnutrit 2-17 Actual Date of Review: Mar 15, 2020 Nutritional Screening: Nutritional Screening (mild fat and muscle loss noted at admission assessment by nurse) Diagnosis: anemia, CHF exacerbation, bilat pleural effusion Pertinent Medical Hx/Surgical: HTN, CHF, GERD, a-fib, diverticulosis, GI bleed in past Subjective Information: telehealth assessment - pt with 2+ pitting edema to LE. Was noted to have iron and folate deficiency at admission. Denied any recent wt loss or reduced po intake Current Diet Order/Nutrition S: 2g Na/low fat/low chol Patient /S.O: Not Indicated Pertinent Meds Current Medications Medications (Trade) Dose Ordered Sig/Robin PRN Reason Start Time Stop Time Status Last Admin Acetaminophen (Tylenol) 1,000 mg Q6H PRN PAIN 1 - 3 03/13/20 21:30 04/12/20 21:29 03/14/20 12:34 Ascorbic Acid (Vitamin C) 500 mg BID 03/13/20 21:30 04/12/20 21:29 03/15/20 08:02 Atorvastatin Calcium (Lipitor) 10 mg HS 03/14/20 21:00 04/13/20 20:59 03/14/20 20:17 Carvedilol (Coreg) 3.125 mg BID 03/14/20 21:00 04/13/20 20:59 03/15/20 08:02 Ferrous Sulfate (Ferrous Sulfate) 325 mg QD 03/13/20 21:30 04/12/20 21:29 03/14/20 20:32 Folic Acid (Folic Acid) 1 mg DAILY 03/14/20 09:00 04/13/20 08:59 03/15/20 12:54 Furosemide (Lasix) 40 mg BID 03/14/20 21:00 04/13/20 20:59 03/15/20 08:01 Lisinopril (Zestril) 5 mg DAILY 03/15/20 17:00 04/14/20 16:59 03/15/20 17:00 Pantoprazole Sodium (Protonix Iv) 40 mg BID 03/13/20 22:00 04/12/20 21:59 03/15/20 08:01 Potassium Chloride (Potassium Chloride) 40 meq DAILY 03/14/20 09:00 04/13/20 08:59 12/23/20 08:33 Quetiapine Fumarate (Seroquel) 25 mg BID 03/14/20 21:00 04/13/20 20:59 03/15/20 08:02 Sertraline HCl (Zoloft) 25 mg DAILY 03/14/20 09:00 04/13/20 08:59 03/15/20 08:02 Tamsulosin HCl (Flomax) 0.4 mg DAILY 03/14/20 09:00 04/13/20 08:59 03/15/20 08:02 Pertinent Labs Laboratory Tests Test 03/14/20 02:00 03/14/20 06:05 03/14/20 15:27 03/14/20 23:24 Hemoglobin 6.8 g/dL 8.3 g/dL 8.1 g/dL 7.3 g/dL Hematocrit 22.0 % 26.2 % 26.0 % White Blood Count 5.3 10^3/uL 5.8 10^3/uL Red Blood Count 2.67 10^6/uL 2.66 10^6/uL Mean Corpuscular Volume 98.1 fL 97.7 fL Mean Corpuscular Hemoglobin 31.1 pg 30.5 pg Mean Corpuscular Hemoglobin Concent 31.7 g/dL 31.2 g/dL Red Cell Distribution Width 19.4 % 19.3 % Platelet Count 160 10^3/uL 160 10^3/uL Mean Platelet Volume 11.2 fL 11.4 fL Neutrophils (%) (Auto) 65.5 % Lymphocytes (%) (Auto) 20.9 % Monocytes (%) (Auto) 9.5 % Neutrophils # (Auto) 3.5 10^3/uL Lymphocytes # (Auto) 1.10 10^3/uL1 Monocytes # (Auto) 0.5 10^3/uL Absolute Immature Granulocyte (auto 0.01 10^3 u/L Absolute Eosinophils (auto) 0.2 10^3/uL Immature Granulocytes % 0.20 % Eosinophils % 3.0 % Basophils % 0.9 % Basophils # 0.1 10^3/uL Sodium Level 135 mmol/L 133 mmol/L Potassium Level 3.0 mmol/L 3.1 mmol/L Chloride Level 95.0 mmol/L 94.0 mmol/L Carbon Dioxide Level 39.0 mmol/L 40.9 mmol/L Anion Gap 4.0 1.2 Blood Urea Nitrogen 25 mg/dL 26 mg/dL Creatinine 1.18 mg/dL 1.14 mg/dL Estimated GFR () 70.3 73.2 Est GFR (CKD-EPI)(Non-Afr Malawian) 58.1 60.5 BUN/Creatinine Ratio 21.0 22.0 Glucose Level 94 mg/dL 98 mg/dL Calcium Level 8.1 mg/dL 8.1 mg/dL Phosphorus Level 3.7 mg/dL Magnesium Level 1.5 mg/dL Total Bilirubin 0.9 mg/dL 0.9 mg/dL Aspartate Amino Transf (AST/SGOT) 18 U/L 18 U/L Alanine Aminotransferase (ALT/SGPT) 12 U/L 13 U/L Alkaline Phosphatase 160 U/L 148 U/L Total Protein 6.2 g/dL 6.3 g/dL Albumin 2.3 g/dL 2.3 g/dL Globulin 3.9 4.0 Albumin/Globulin Ratio 0.589 0.575 Test 03/15/20 08:53 03/15/20 16:57 White Blood Count 4.8 10^3/uL Red Blood Count 2.60 10^6/uL Hemoglobin 8.0 g/dL Hematocrit 25.5 % Mean Corpuscular Volume 98.1 fL Mean Corpuscular Hemoglobin 30.8 pg Mean Corpuscular Hemoglobin Concent 31.4 g/dL Red Cell Distribution Width 18.6 % Platelet Count 150 10^3/uL Mean Platelet Volume 11.2 fL Sodium Level 136 mmol/L Potassium Level 3.2 mmol/L Chloride Level 93.0 mmol/L Carbon Dioxide Level 40.5 mmol/L Anion Gap 5.7 Blood Urea Nitrogen 24 mg/dL Creatinine 1.17 mg/dL Estimated GFR () 71.0 Est GFR (CKD-EPI)(Non-Afr Malawian) 58.7 BUN/Creatinine Ratio 20.0 Glucose Level 104 mg/dL Calcium Level 8.4 mg/dL Total Bilirubin 0.9 mg/dL Aspartate Amino Transf (AST/SGOT) 15 U/L Alanine Aminotransferase (ALT/SGPT) 9 U/L Alkaline Phosphatase 133 U/L Total Protein 6.0 g/dL Albumin 2.3 g/dL Globulin 3.7 Albumin/Globulin Ratio 0.621 Blood Gas Sample Site RT BRACIAL ARTERY Blood Gas pH 7.450 Blood Gas PCO2 64.2 mmHg Blood Gas PO2 94.5 mmHg Blood Gas HCO3 43.6 mmol/L Blood Gas Base Excess 17.3 mmol/L Bin Test N/A Arterial Blood Oxygen Saturation 97.0 % Deoxyhemoglobin 3.0 % Carboxyhemoglobin 0.6 % Methemoglobin 0.2 % Total Hemoglobin 9.2 % Total Oxygen Concentration 12.6 % Oxygen Delivery Method (LAB) NASAL CANNULA FiO2 28 % Total Carbon Dioxide 45.6 mmol/L Height (Feet): 6 Height (Inches): 0 Current Weight: 199 %IBW: 112 Recent Weight Change: No Weight Status: Overweight GI Symptoms: Last BM (03/14) Food Allergies: No Cultural/Ethnic/Taoism Mary: none known Skin Integrity/Comment: Yes (PU noted to back of heel, reddness at coccyx) Current %PO: 50-100% BEE in Kcals: Use Current Weight Calories/Kcals/Kg: MSJ 1.2-1.4 Kcals Calculated: 2632-8509 kcal Protein: Use Current Weight Protein g/k-1.3 g/kg Protein Calculated: 90-118g Fluid: ml: 1930ml or 1ml/kcal - fluid restrition per MD Nutritional Problem: Nutr. Problems Present Problems: Inadequate oral intake Etiology: CHF exacerbation Signs/Symptoms: 50% of most meals not meeting estimated nutrition needs. RD Comments: 1. Continue 2g Na/low fat/low cholesterol diet. 2. Encourage small frequent meals and snacks with high protein intake. 3. Recommend Yahir BID to promote healing of pressure ulcer. 4. Continue iron and folic acid supplementation and monitor. 5. Monitor electrolytes and correct as indicated. 6. Monitor I/O and weight. Expected Outcomes 75-100% po intake of meals to meet estimated needs. Discharge on cardiac diet. RD to monitor po intake, weight, and care plan. Malnutrtion/Nutrition Risk Edu: No MD Notificiation Needed?: No Esther Mason Mar 15, 2020 19:44
[2020-03-15] MEDS: LIPITOR PO SCH (20:18)
[2020-03-15] MEDS: FERROUS SULFATE PO SCH (21:30)
[2020-03-16 00:20] VITALS: BP 119/63
[2020-03-16 04:35] VITALS: BP 115/65
[2020-03-16 06:22] LABS: MEAN CORP HGB 30.5 pg (26-34); RED CELL DISTRIBUTION WIDTH 17.8 % (11.5-14.5)
[2020-03-16 06:35] LABS: CALCIUM 8.3 mg/dL (8.4-10.5)
[2020-03-16 08:11] VITALS: BP 116/66
[2020-03-16] MEDS ORDERED: KCL 20MEQ/100ML 100 ML IV ONE (08:30)
[2020-03-16] MEDS: ZESTRIL PO SCH (09:00)
[2020-03-16] MEDS: POTASSIUM CHLORIDE PO SCH (09:00)
[2020-03-16] MEDS: PROTONIX IV IV SCH ×2 (09:32→20:40)
[2020-03-16] MEDS: LASIX IV SCH ×2 (09:32→21:00)
[2020-03-16] MEDS: ZOLOFT PO SCH (09:32)
[2020-03-16] MEDS: COREG PO SCH ×2 (09:32→21:00)
[2020-03-16] MEDS: FOLIC ACID PO SCH (09:33)
[2020-03-16] MEDS: VITAMIN C PO SCH ×2 (09:33→20:39)
[2020-03-16] MEDS: FLOMAX PO SCH (09:33)
[2020-03-16] MEDS: SEROQUEL PO SCH ×2 (09:33→20:40)
--- NOTE | 2020-03-16 10:53 | PRM.PN ---
PROGRESS NOTE S/O/A/P Chief complaint: Severe anemia. Subjective: He feels well no specific complaint. He keeps asking to go back to long-term because he is worried about his and son. Denied any chest pain or shortness of breath. Denies any penis pain. No events overnight. Objective: Vital Signs Date Time Temp Pulse Resp B/P (MAP) Pulse Ox O2 Delivery O2 Flow Rate FiO2 03/16/20 09:32 63 116/66 03/16/20 08:11 97.6 19 91 03/16/20 04:35 Nasal Canula 03/16/20 00:20 1.00 03/14/20 21:23 28 GENERAL:Fully awake and oriented to place and time..no distress. not agitated. HEENT: NC/AT. PERRLA. EOMI. MMM. Neck is supple. LUNGS: CTAB. Basal Rales with diminished air entry on both sides. No sign of respiratory distress or cyanosis. HEART: Normal S1S2. No murmurs, rubs, gallops. ABDOMEN: Soft. No rebound or guarding. Normal BS throughout. EXTREMITIES: ++ pitting edema. Skin: Edema around the penis. NEUROLOGIC: No focal deficit noticed on observation.moving all 4 extremities equally. Laboratory Tests Test 03/15/20 16:57 03/15/20 22:21 03/16/20 06:00 Blood Gas Sample Site RT BRACIAL ARTERY Blood Gas pH 7.450 Blood Gas PCO2 64.2 mmHg Blood Gas PO2 94.5 mmHg Blood Gas HCO3 43.6 mmol/L Blood Gas Base Excess 17.3 mmol/L Bin Test N/A Arterial Blood Oxygen Saturation 97.0 % Deoxyhemoglobin 3.0 % Carboxyhemoglobin 0.6 % Methemoglobin 0.2 % Total Hemoglobin 9.2 % Total Oxygen Concentration 12.6 % Oxygen Delivery Method (LAB) NASAL CANNULA FiO2 28 % Total Carbon Dioxide 45.6 mmol/L Hemoglobin 8.1 g/dL 8.3 g/dL White Blood Count 4.8 10^3/uL Red Blood Count 2.72 10^6/uL Hematocrit 27.0 % Mean Corpuscular Volume 99.3 fL Mean Corpuscular Hemoglobin 30.5 pg Mean Corpuscular Hemoglobin Concent 30.7 g/dL Red Cell Distribution Width 17.8 % Platelet Count 158 10^3/uL Mean Platelet Volume 11.2 fL Sodium Level 134 mmol/L Potassium Level 3.1 mmol/L Chloride Level 93.0 mmol/L Carbon Dioxide Level 41.0 mmol/L Anion Gap 3.1 Blood Urea Nitrogen 24 mg/dL Creatinine 1.13 mg/dL Estimated GFR () 73.9 Est GFR (CKD-EPI)(Non-Afr Montenegrin) 61.1 BUN/Creatinine Ratio 21.0 Glucose Level 97 mg/dL Calcium Level 8.3 mg/dL Magnesium Level 1.4 mg/dL Total Bilirubin 0.7 mg/dL Aspartate Amino Transf (AST/SGOT) 18 U/L Alanine Aminotransferase (ALT/SGPT) 9 U/L Alkaline Phosphatase 125 U/L Total Protein 6.1 g/dL Albumin 2.2 g/dL Globulin 3.9 Albumin/Globulin Ratio 0.564 Current Medications Medications (Trade) Dose Ordered Sig/Robin Route PRN Reason Start Time Stop Time Status Last Admin Dose Admin Orphenadrine Citrate (Norflex) 60 mg STK-MED ONCE .ROUTE 03/13/20 19:24 03/13/20 19:25 DC Lorazepam (Ativan) 2 mg STK-MED ONCE .ROUTE 03/13/20 19:27 03/13/20 19:27 DC Lorazepam (Ativan) 0.5 mg STAT STAT PO 03/13/20 19:27 03/13/20 19:57 DC Lorazepam (Ativan) 0.5 mg STAT STAT IV 03/13/20 19:55 03/13/20 19:57 DC 03/13/20 19:50 Furosemide (Lasix) 40 mg STAT STAT IV 03/13/20 19:55 03/13/20 19:57 DC 03/13/20 20:03 Furosemide (Lasix) 40 mg STK-MED ONCE .ROUTE 03/13/20 20:00 03/13/20 20:00 DC Sodium Chloride 250 ml @ ud STK-MED ONCE IV 03/13/20 21:05 03/13/20 21:06 DC Acetaminophen (Tylenol) 1,000 mg Q6H PRN PO PAIN 1 - 3 03/13/20 21:30 04/12/20 21:29 03/14/20 12:34 Ascorbic Acid (Vitamin C) 500 mg BID PO 03/13/20 21:30 04/12/20 21:29 03/16/20 09:33 Ferrous Sulfate (Ferrous Sulfate) 325 mg QD PO 03/13/20 21:30 04/12/20 21:29 03/15/20 21:30 Sertraline HCl (Zoloft) 25 mg DAILY PO 03/14/20 09:00 04/13/20 08:59 03/16/20 09:32 Tamsulosin HCl (Flomax) 0.4 mg DAILY PO 03/14/20 09:00 04/13/20 08:59 03/16/20 09:33 Atorvastatin Calcium (Lipitor) 10 mg HS PO 03/14/20 21:00 04/13/20 20:59 03/15/20 20:18 Pantoprazole Sodium (Protonix Iv) 40 mg BID IV 03/13/20 22:00 04/12/20 21:59 03/16/20 09:32 Sodium Chloride 250 ml @ STK-MED ONCE IV 03/14/20 02:09 03/14/20 02:17 DC Folic Acid (Folic Acid) 1 mg DAILY PO 03/14/20 09:00 04/13/20 08:59 03/16/20 09:33 Furosemide (Lasix) 40 mg DAILY IV 03/14/20 09:00 03/14/20 15:09 DC 03/14/20 09:11 Potassium Chloride (Potassium Chloride) 40 meq DAILY PO 03/14/20 09:00 03/16/20 08:16 DC 03/15/20 08:33 Furosemide (Lasix) 40 mg STAT STAT IV 03/14/20 15:06 03/14/20 15:09 DC Furosemide (Lasix) 40 mg BID IV 03/14/20 21:00 04/13/20 20:59 03/16/20 09:32 Carvedilol (Coreg) 3.125 mg BID PO 03/14/20 21:00 04/13/20 20:59 03/16/20 09:32 Quetiapine Fumarate (Seroquel) 25 mg BID PO 03/14/20 21:00 04/13/20 20:59 03/16/20 09:33 Potassium Chloride 100 ml @ 50 mls/hr OT ONCE IV 03/15/20 09:30 03/15/20 11:29 DC 03/15/20 12:57 Potassium Chloride 100 ml @ ud STK-MED ONCE IV 03/15/20 12:46 03/15/20 12:46 DC Sodium Chloride 500 ml @ ud STK-MED ONCE IV 03/15/20 12:52 03/15/20 12:52 DC Lisinopril (Zestril) 5 mg DAILY PO 03/15/20 17:00 04/14/20 16:59 03/16/20 09:00 Acetazolamide (Diamox) 250 mg OT ONCE PO 03/15/20 17:30 03/15/20 17:36 DC 03/15/20 17:30 Acetazolamide (Diamox) 250 mg STK-MED ONCE .ROUTE 03/15/20 18:58 03/15/20 18:59 DC Potassium Chloride (Potassium Chloride) 60 meq DAILY PO 03/16/20 09:00 04/15/20 08:59 03/16/20 09:00 Potassium Chloride 100 ml @ 50 mls/hr OT ONCE IV 03/16/20 08:30 03/16/20 10:29 DC 03/16/20 09:30 Magnesium Sulfate/ Dextrose 100 ml @ 100 mls/hr OT ONCE IV 03/16/20 11:00 03/16/20 11:59 UNV <Conclusion> Left ventricular systolic function is mild to moderately decreased. LVEF is 40-45%. There is global hypokinesis of the left ventricle. Left atrium is severely dilated. Right atrium is severely dilated. Mild aortic stenosis. Severe mitral regurgitation. Severe tricuspid regurgitation. Moderate to severe pulmonic regurgitation. Mild circumferential pericardial effusion. No echo indications of pericardial tamponade. Large left pleural effusion. Moderate pulmonary hypertension. Assessment/Plan Pt is a 89 y/o M with PMHx of HFrEF, CAD, Afib on Eliquis, HTN, HLD, and prior GI bleeding, was admitted for severe anemia, probable UGIB, and acute exacerbation of CHF. # Severe Anemia: It is multifactorial. There is no evidence of upper GI bleeding by observation during hospital stay. His hemoglobin remained stable after transfusion. Given his age and comorbidity he has baseline anemia of chronic disease. And he has had previous history of GI bleeding. plan: -Continue monitoring his hemoglobin status every 12 hours. Continue monitoring vitals and any signs of active bleeding. - I am not sure if he had any colonoscopy done in the past but he might need colonoscopy as outpatient # Acute on Chronic Systolic CHF exacerbation: He is stable on 2 L nasal cannula. He feels weak in general. He is not active at baseline. His quality of life is poor to start with. plan: - Continue Lasix 40 mg twice daily. Monitor kidney function and potassium level. -Continue Coreg 3.125 mg twice daily. -c/w lisinopril 5 mg p.o. daily. -We will monitor his vitals and fluid balance concerned about overdiuresis. -Cardiology consult. # Refractory Hypokalemia: Will be replaced. We will replace magnesium as well. #Bilateral pleural effusion: Most likely secondary to CHF. We will continue diuresis with Lasix. No need for therapeutic thoracentesis at this point. # Chronic A. fib: EKG showed paced rhythm. Giving the history of severe anemia and GI bleeding we will stop Eliquis. # Macrocytosis # Iron Deficiency # folate deficiency # Metabolic Alkalosis #BPH - continue home flomax, sertraline, lipitor, vitamin C, and iron supplement - will start PO Folate 1g daily for folate deficiency VTE ppx: none GI ppx: PPI BID Diet: cardiac CODE:DNJIHAN BABIN MD Mar 16, 2020 10:53
[2020-03-16] MEDS ORDERED: MAGNESIUM-D5W 1 GM/100 ML SOLN 100 ML IV ONE (11:00)
[2020-03-16] MEDS ORDERED: AMBIEN PO PRN (11:00)
--- NOTE | 2020-03-16 11:14 | NUR ---
Large BM today. Meticulous evita care provided. Shaft of penis remains edematous, non-strangulated. Herndon catheter in place, draining yellow urine with scant sediments. HOB elevation maintained. Multiple scattered bruises, scabs, skin tears and skin tags noted. No S&S inflammation. Bilat feet with webbed toes. Heels elevated bilaterally.
[2020-03-16 11:55] VITALS: BP 112/60
--- NOTE | 2020-03-16 13:06 | NUR ---
Herndon Catheter leaking at insertion site. Readjusted and inserted an additional 5mL NS. Remains patent.
[2020-03-16 16:04] VITALS: BP 103/60
[2020-03-16 19:49] VITALS: BP 95/52
[2020-03-16] MEDS: LIPITOR PO SCH (20:40)
[2020-03-16] MEDS: FERROUS SULFATE PO SCH (23:13)
[2020-03-17] VITALS (7 sets, daily range): BP systolic 94–135; BP diastolic 54–70
[2020-03-17] MEDS: SEROQUEL PO SCH ×2 (08:39→20:35)
[2020-03-17] MEDS: VITAMIN C PO SCH ×2 (08:39→20:35)
[2020-03-17] MEDS: ZOLOFT PO SCH (08:39)
[2020-03-17] MEDS: POTASSIUM CHLORIDE PO SCH (08:40)
[2020-03-17] MEDS: FOLIC ACID PO SCH (08:40)
[2020-03-17] MEDS: FLOMAX PO SCH (08:40)
[2020-03-17] MEDS: PROTONIX IV IV SCH ×2 (08:40→20:35)
[2020-03-17] MEDS: ZESTRIL PO SCH (08:50)
[2020-03-17] MEDS: LASIX IV SCH ×2 (08:50→21:00)
[2020-03-17] MEDS: COREG PO SCH ×2 (08:51→21:00)
--- NOTE | 2020-03-17 10:36 | PRM.PN ---
PROGRESS NOTE S/O/A/P Chief complaint: Severe anemia. Subjective: He feels well with no specific complaint. He keeps asking to go back to retirement because he is worried about his and son. Denied any chest pain or shortness of breath. No events overnight. Objective: Vital Signs Date Time Temp Pulse Resp B/P (MAP) Pulse Ox O2 Delivery O2 Flow Rate FiO2 03/17/20 09:40 Room Air 03/17/20 09:30 69 20 98 2.00 03/17/20 09:25 97.6 135/70 (91) 03/16/20 21:00 28 GENERAL:Fully awake and oriented to place and time..no distress. not agitated. HEENT: NC/AT. PERRLA. EOMI. MMM. Neck is supple. LUNGS: Basal Rales with diminished air entry on both sides. No sign of respiratory distress or cyanosis. HEART: Normal S1S2. No murmurs, rubs, gallops. ABDOMEN: Soft. No rebound or guarding. Normal BS throughout. EXTREMITIES: ++ pitting edema is much less. Skin: Edema around the penis. NEUROLOGIC: No focal deficit noticed on observation.moving all 4 extremities equally. <Conclusion> Left ventricular systolic function is mild to moderately decreased. LVEF is 40-45%. There is global hypokinesis of the left ventricle. Left atrium is severely dilated. Right atrium is severely dilated. Mild aortic stenosis. Severe mitral regurgitation. Severe tricuspid regurgitation. Moderate to severe pulmonic regurgitation. Mild circumferential pericardial effusion. No echo indications of pericardial tamponade. Large left pleural effusion. Moderate pulmonary hypertension. Assessment/Plan Pt is a 89 y/o M with PMHx of HFrEF, CAD, Afib on Eliquis, HTN, HLD, and prior GI bleeding, was admitted for severe anemia, probable UGIB, and acute exacerbation of CHF. # Severe Anemia: It is multifactorial. There is no evidence of upper GI bleeding by observation during hospital stay. His hemoglobin remained stable after transfusion. Given his age and comorbidity he has baseline anemia of chronic disease. And he has had previous history of GI bleeding. plan: -Continue monitoring his hemoglobin status every day. Continue monitoring vitals and any signs of active bleeding. - I am not sure if he had any colonoscopy done in the past but he might need colonoscopy as outpatient # Acute on Chronic Systolic CHF exacerbation: He is stable on 2 L nasal cannula. He feels weak in general. He is not active at baseline. His quality of life is poor to start with. his fluid status is getting better. the edema is less. plan: - Continue Lasix 40 mg twice daily. Monitor kidney function and potassium level. -Continue Coreg 3.125 mg twice daily. -c/w lisinopril 5 mg p.o. daily. -We will monitor his vitals and fluid balance concerned about overdiuresis. -Cardiology consult. # Refractory Hypokalemia: Will be replaced. We will replace magnesium as well. #Bilateral pleural effusion: Most likely secondary to CHF. We will continue diuresis with Lasix. No need for therapeutic thoracentesis at this point. # Chronic A. fib: EKG showed paced rhythm. Giving the history of severe anemia and GI bleeding we will stop Eliquis. #Metabolic alkalosis due to CO2 retention/respiratory acidosis: He does not have history of COPD and no signs of bronchospasm. Has a barrel shaped chest possibly has air trapping leading to CO2 retention. These findings are chronic. #Moderate to severe Malnutrition: Widespread muscle wasting. Nutrition assessment was requested. We recommend titrating diet. # Macrocytosis # Iron Deficiency # folate deficiency #BPH - continue home flomax, sertraline, lipitor, vitamin C, and iron supplement - will start PO Folate 1g daily for folate deficiency VTE ppx: none GI ppx: PPI BID Diet: cardiac CODE:DNJIHAN BABIN MD Mar 17, 2020 10:36
[2020-03-17] MEDS: ALDACTONE PO SCH (11:00)
--- NOTE | 2020-03-17 17:14 | DIET.OP ---
Nutrition Asmt/Malnutrit 2-17 Actual Date of Review: Mar 17, 2020 Diagnosis: anemia, CHF exacerbation, bilat pleural effusion Pertinent Medical Hx/Surgical: HTN, CHF, GERD, a-fib, diverticulosis, GI bleed in past Subjective Information: telehealth f/u - Pt noted to have iron and folate deficiency at admission. Denied any recent wt loss or reduced po intake. Pitting bilat edema to UE and LE that is improving. Pt with widespread muscle wasting per MD note. He is having difficulty chewing and poor intake per RN. Ensure has been ordered with meals. Current Diet Order/Nutrition S: pureed diet - Ensure TID Patient /S.O: Not Indicated Pertinent Meds Current Medications Medications (Trade) Dose Ordered Sig/Robin PRN Reason Start Time Stop Time Status Last Admin Atorvastatin Calcium (Lipitor) 10 mg HS 03/14/20 21:00 04/13/20 20:59 03/16/20 20:40 Carvedilol (Coreg) 3.125 mg BID 03/14/20 21:00 04/13/20 20:59 03/17/20 08:51 Furosemide (Lasix) 40 mg BID 03/14/20 21:00 04/13/20 20:59 03/17/20 08:50 Lisinopril (Zestril) 5 mg DAILY 03/15/20 17:00 04/14/20 16:59 03/17/20 08:50 Potassium Chloride (Potassium Chloride) 40 meq BID 03/17/20 21:00 04/16/20 20:59 Quetiapine Fumarate (Seroquel) 25 mg BID 03/14/20 21:00 04/13/20 20:59 03/17/20 08:39 Spironolactone (Aldactone) 12.5 mg DAILY 03/17/20 11:00 04/16/20 10:59 03/17/20 11:00 Zolpidem Tartrate (Ambien) 5 mg HS PRN INSOMNIA 03/16/20 11:00 04/15/20 10:59 Pertinent Labs K 3.1, Cl 93, BUN 24, Mg 1.4, alb 2.2 Height (Feet): 6 Height (Inches): 0 Current Weight: 199 %IBW: 112 Recent Weight Change: No (wt stable the last 3 days. ) Weight Status: Overweight (per BMI - edema likely contributing) GI Symptoms: Last BM (03/16) Difficult in: Chewing Food Allergies: No Cultural/Ethnic/Moravian Mary: none known Skin Integrity/Comment: Yes (PU on L heel) Current %PO: 0-50% BEE in Kcals: Use Current Weight Calories/Kcals/Kg: MSJ 1.2-1.4 Kcals Calculated: 2409-5177 kcal Protein: Use Current Weight Protein g/k-1.3 g/kg Protein Calculated: 90-118g Fluid: ml: 1930ml or 1ml/kcal - fluid restrition per MD Nutritional Problem: Nutr. Problems Present Problems: Inadequate oral intake Etiology: difficulty chewing Signs/Symptoms: 0-50% of most meals not meeting estimated nutrition needs. RD Comments: 1. Continue pureed diet as tolerated, encouraging po intake of calorically dense foods consistent with diet order. 2. Continue Ensure Enlive TID. Encourage food at meals and ensure between meals. 3. Recommend Yahir BID to promote healing of pressure ulcer. 4. Continue iron and folic acid supplementation and monitor. 5. Monitor electrolytes and correct as indicated. 6. Monitor I/O and weight. - frequent weights RD to monitor po intake, weight, labs, and care plan. Expected Outcomes 75-100% po intake of meals to meet estimated needs the next 3 days. Discharge on cardiac/soft diet. Malnutrtion/Nutrition Risk Edu: No MD Notificiation Needed?: No Esther Mason Mar 17, 2020 17:14
[2020-03-17] MEDS: LIPITOR PO SCH (20:35)
[2020-03-17] MEDS ORDERED: POTASSIUM CHLORIDE PO SCH (21:00)
[2020-03-17] MEDS: FERROUS SULFATE PO SCH (21:43)
[2020-03-18 01:55] VITALS: BP 96/54
[2020-03-18 06:18] LABS: MEAN CORP HGB 31.4 pg (26-34); RED CELL DISTRIBUTION WIDTH 16.9 % (11.5-14.5)
[2020-03-18 06:24] LABS: CALCIUM 8.5 mg/dL (8.4-10.5); CARBON DIOXIDE 36.7 mmol/L (20.0-32)
[2020-03-18] MEDS: ZOLOFT PO SCH (08:25)
[2020-03-18] MEDS: SEROQUEL PO SCH (08:25)
[2020-03-18] MEDS: PROTONIX IV IV SCH (08:25)
[2020-03-18] MEDS: VITAMIN C PO SCH (08:25)
[2020-03-18] MEDS: FLOMAX PO SCH (08:25)
[2020-03-18] MEDS: FOLIC ACID PO SCH (08:25)
[2020-03-18 08:26] VITALS: BP 120/67
[2020-03-18] MEDS: ZESTRIL PO SCH (08:38)
[2020-03-18] MEDS: LASIX IV SCH (08:39)
[2020-03-18] MEDS: COREG PO SCH (08:39)
[2020-03-18] MEDS ORDERED: BUME1TAB3 PO (08:48)
[2020-03-18] MEDS ORDERED: Folic Acid PO (08:48)
[2020-03-18] MEDS ORDERED: LISI-414 PO (08:48)
[2020-03-18] MEDS ORDERED: SPIR25TA PO (08:48)
[2020-03-18] MEDS ORDERED: CARV3.122 PO (08:48)
[2020-03-18] MEDS ORDERED: QUET25TA5 PO (08:48)
[2020-03-18] MEDS ORDERED: POTASSIUM CHLORIDE PO SCH (09:00)
--- NOTE | 2020-03-18 09:44 | PRM.DC ---
Discharge Summary Chief Complaint: severe anemia HPI and Diagnostic Evaluation History of Present Illness Pt is a 89 y/o M with PMHx of HFrEF, CAD, Afib on Eliquis, HTN, HLD, and prior GI bleeding, who presents [facility], which revealed severe anemia of 6.5. The patient himself is asymptomatic and hemodynamically stable. However, he is incredibly hard of hearing and getting a full history and review of systems was very difficult. Per Chart review, it appears that his Hb has been gradually trending down over the last several months. His Hb was initially 9.7 in December, then 8.7 a week later, and dropped again to 7.6 in January. He has apparently had GI bleeding in the past, but is still on Eliquis despite this. In the ED, he was hemodynamically stable and asymptomatic. Labs were notable for repeat Hb of 6.7, MCV 104, stool occult positive. No leukocytosis. BNP > 7000, trop 0.10. His bicarb is notably high at 39, but he reports no diarrhea or urinary symptom. He was noted to have significant LE pitting edema, and CXR showed interstitial and alveolar pulmonary edema consistent with "CHF pattern with pulmonary vascular congestion, cardiomegaly and layering pleural effusions ...underlying pneumonia not excluded". He was admitted to inpatient medicine for severe anemia, probable UGIB, and acute exacerbation of CHF Allergies: Coded Allergies: Penicillins (Verified Allergy, Intermediate, Rash, 03/13/20) Findings Subjective: He feels well no specific complaint. He keeps asking to go back to jail because he is worried about his and son. Denied any chest pain or shortness of breath. Denies any penis pain. No events overnight. Objective: Vital Signs Date Time Temp Pulse Resp B/P (MAP) Pulse Ox O2 Delivery O2 Flow Rate FiO2 03/18/20 08:39 70 120/67 03/18/20 08:30 100 Nasal Cannula 2.00 03/18/20 08:26 97.6 18 03/16/20 21:00 28 GENERAL:Fully awake and oriented to place and time..no distress. not agitated. HEENT: NC/AT. PERRLA. EOMI. MMM. Neck is supple. LUNGS: CTAB. Basal Rales with diminished air entry on both sides. No sign of respiratory distress or cyanosis. HEART: Normal S1S2. No murmurs, rubs, gallops. ABDOMEN: Soft. No rebound or guarding. Normal BS throughout. EXTREMITIES: ++ pitting edema. Skin: Edema around the penis. NEUROLOGIC: No focal deficit noticed on observation.moving all 4 extremities equally. Home Meds Active Scripts [Folic Acid] 1 MG TABLET No Conflict Check, 1 MG PO DAILY for 30 Days Prov:JIHAN CONNER MD 03/18/20 Quetiapine Fumarate (SEROQUEL) 25 Mg Tablet, 25 MG PO HS for 30 Days, TAB Prov:JIHAN CONNER MD 03/18/20 Spironolactone 25MG (ALDACTONE 25MG) 25 Mg Tablet, 12.5 MG PO DAILY for 30 Days, TAB Prov:JIHAN CONNER MD 03/18/20 Lisinopril (LISINOPRIL) 5 Mg Tablet, 5 MG PO DAILY for 30 Days, TAB Prov:JIHAN CONNER MD 03/18/20 Carvedilol (CARVEDILOL) 3.125 Mg Tablet, 3.125 MG PO BID for 30 Days, TAB Prov:JIHAN CONNER MD 03/18/20 Bumetanide (BUMETANIDE) 1 Mg Tablet, 2 TAB PO DAILY for 30 Days, #90 TAB 1 Refill Prov:JIHAN CONNER MD 03/18/20 Reported Medications Apixaban (Eliquis) 5 Mg Tablet, 2.5 MG PO BID for A FIB, TABLET 03/13/20 Gabapentin (GABAPENTIN) 100 Mg Capsule, 1 CAP PO BID for PAIN, #90 CAP 2 Refills 03/13/20 Ascorbic Acid (VITAMIN C) 500 Mg Tablet, 500 MG PO BID 03/13/20 Ferrous Sulfate (FERROUSUL) 325 Mg Tablet, 1 TAB PO QD for 30 Days, #30 TAB 0 Refills 03/13/20 Sertraline Hcl (ZOLOFT) 25 Mg Tablet, 1 TAB PO DAILY, #30 TAB 1 Refill 03/13/20 Pantoprazole Sodium (PROTONIX) 40 Mg Tablet.dr, 1 TAB PO DAILY, #30 TAB 5 Refills 03/13/20 Lactobacillus Acidophilus (ACIDOPHILUS) 1 Each Capsule, 1 CAP PO QD for 14 Days, #14 CAP 0 Refills 03/13/20 Simvastatin (SIMVASTATIN) 20 Mg Tablet, 1 TAB PO HS, #30 TAB 5 Refills 03/13/20 Tamsulosin Hcl (FLOMAX) 0.4 Mg Cap.er.24h, 1 CAP PO DAILY, #30 CAP 11 Refills 03/13/20 Zinc (ZINC) 50 Mg Tablet, 1 TAB PO QD for 30 Days, #30 TAB 0 Refills 03/13/20 Electrolyte,Oral (PEDIALYTE) 1,000 Ml Solution, 240 MILLILITER PO DAILY24, #2000 MILLILITER 03/13/20 Metolazone (ZAROXOLYN) 5 Mg Tablet, 5 MG PO DAILY24, TABLET 03/13/20 Scheduled Apixaban (Eliquis), 2.5 MG PO BID, (Reported) Ascorbic Acid (Vitamin C), 500 MG PO BID, (Reported) Bumetanide (Bumetanide), 2 TAB PO DAILY Carvedilol (Carvedilol), 3.125 MG PO BID Electrolyte,Oral (Pedialyte), 240 MILLILITER PO DAILY24, (Reported) Ferrous Sulfate (Ferrousul), 1 TAB PO QD, (Reported) Gabapentin (Gabapentin), 1 CAP PO BID, (Reported) Lactobacillus Acidophilus (Acidophilus), 1 CAP PO QD, (Reported) Lisinopril (Lisinopril), 5 MG PO DAILY Metolazone (Zaroxolyn), 5 MG PO DAILY24, (Reported) Pantoprazole Sodium (Protonix), 1 TAB PO DAILY, (Reported) Quetiapine Fumarate (Seroquel), 25 MG PO HS Sertraline Hcl (Zoloft), 1 TAB PO DAILY, (Reported) Simvastatin (Simvastatin), 1 TAB PO HS, (Reported) Spironolactone 25MG (Aldactone 25MG), 12.5 MG PO DAILY Tamsulosin Hcl (Flomax), 1 CAP PO DAILY, (Reported) Zinc (Zinc), 1 TAB PO QD, (Reported) [Folic Acid], 1 MG PO DAILY Consultations Cardiology. Procedures ECHO Left ventricular systolic function is mild to moderately decreased. LVEF is 40-45%. There is global hypokinesis of the left ventricle. Left atrium is severely dilated. Right atrium is severely dilated. Mild aortic stenosis. Severe mitral regurgitation. Severe tricuspid regurgitation. Moderate to severe pulmonic regurgitation. Mild circumferential pericardial effusion. No echo indications of pericardial tamponade. Large left pleural effusion. Moderate pulmonary hypertension. Laboratory Tests Test 03/13/20 14:30 03/13/20 18:16 03/14/20 02:00 03/14/20 06:05 Iron Level 58 ug/dL (65-175) Vitamin B12 Level 428 pg/mL (193-986) Folate 5.8 ng/mL (8.6-58.9) White Blood Count 6.5 10^3/uL (4.5-11.0) 5.3 10^3/uL (4.5-11.0) Red Blood Count 2.12 10^6/uL (4.50-5.90) 2.67 10^6/uL (4.50-5.90) Hemoglobin 6.7 g/dL (13.9-16.3) 6.8 g/dL (13.9-16.3) 8.3 g/dL (13.9-16.3) Hematocrit 22.2 % (37.0-53.0) 22.0 % (37.0-53.0) 26.2 % (37.0-53.0) Mean Corpuscular Volume 104.7 fL (78-100) 98.1 fL (78-100) Mean Corpuscular Hemoglobin 31.6 pg (26-34) 31.1 pg (26-34) Mean Corpuscular Hemoglobin Concent 30.2 g/dL (33-36.5) 31.7 g/dL (33-36.5) Red Cell Distribution Width 15.8 % (11.5-14.5) 19.4 % (11.5-14.5) Platelet Count 184 10^3/uL (150-400) 160 10^3/uL (150-400) Mean Platelet Volume 11.3 fL (7.8-11.0) 11.2 fL (7.8-11.0) Neutrophils (%) (Auto) 63.3 % (41.0-85.0) 65.5 % (41.0-85.0) Lymphocytes (%) (Auto) 22.6 % (24.0-44.0) 20.9 % (24.0-44.0) Monocytes (%) (Auto) 9.3 % (5.0-12.0) 9.5 % (5.0-12.0) Neutrophils # (Auto) 4.1 10^3/uL (1.8-7.7) 3.5 10^3/uL (1.8-7.7) Lymphocytes # (Auto) 1.46 10^3/uL1 (1.0-4.8) 1.10 10^3/uL1 (1.0-4.8) Monocytes # (Auto) 0.6 10^3/uL (0.3-0.8) 0.5 10^3/uL (0.3-0.8) Absolute Immature Granulocyte (auto 0.02 10^3 u/L (0-2) 0.01 10^3 u/L (0-2) Absolute Eosinophils (auto) 0.3 10^3/uL (0.0-0.2) 0.2 10^3/uL (0.0-0.2) Immature Granulocytes % 0.30 % (0.00-0.50) 0.20 % (0.00-0.50) Eosinophils % 3.9 % (0.0-5.0) 3.0 % (0.0-5.0) Basophils % 0.6 % (0.0-0.2) 0.9 % (0.0-0.2) Basophils # 0.0 10^3/uL (0.0-0.1) 0.1 10^3/uL (0.0-0.1) Prothrombin Time 11.7 SEC (9.3-11.3) Prothrombin Time INR (Non-Therap) 1.2 Activated Partial Thromboplast Time 28.3 SEC (24.67-30.72) Stool Occult Blood (IFOB) POSITIVE (NEGATIVE) Sodium Level 133 mmol/L (132-145) 135 mmol/L (132-145) Potassium Level 3.3 mmol/L (3.6-5.2) 3.0 mmol/L (3.6-5.2) Chloride Level 95.0 mmol/L (96-109) 95.0 mmol/L (96-109) Carbon Dioxide Level 39.1 mmol/L (20.0-32) 39.0 mmol/L (20.0-32) Anion Gap 2.2 4.0 Blood Urea Nitrogen 25 mg/dL (7-18) 25 mg/dL (7-18) Creatinine 1.18 mg/dL (0.59-1.40) 1.18 mg/dL (0.59-1.40) Estimated GFR () 70.3 (>/=60) 70.3 (>/=60) Est GFR (CKD-EPI)(Non-Afr Fijian) 58.1 (>/=60) 58.1 (>/=60) BUN/Creatinine Ratio 21.0 21.0 Glucose Level 103 mg/dL (70-110) 94 mg/dL (70-110) Calcium Level 8.1 mg/dL (8.4-10.5) 8.1 mg/dL (8.4-10.5) Total Bilirubin 0.6 mg/dL (0.2-1.0) 0.9 mg/dL (0.2-1.0) Aspartate Amino Transf (AST/SGOT) 20 U/L (0-35) 18 U/L (0-35) Alanine Aminotransferase (ALT/SGPT) 13 U/L (12-78) 12 U/L (12-78) Alkaline Phosphatase 191 U/L (50-136) 160 U/L (50-136) Total Creatine Kinase 39 U/L (39-308) Creatine Kinase MB 2.0 ng/mL (0.5-3.6) Troponin I 0.10 ng/mL (0.00-0.05) Pro-B-Type Natriuretic Peptide 7573 pg/mL (0-450) Total Protein 6.4 g/dL (6.4-8.2) 6.2 g/dL (6.4-8.2) Albumin 2.4 g/dL (3.4-5.0) 2.3 g/dL (3.4-5.0) Globulin 4.0 3.9 Albumin/Globulin Ratio 0.600 0.589 Phosphorus Level 3.7 mg/dL (2.5-4.9) Magnesium Level 1.5 mg/dL (1.8-2.4) Test 03/14/20 15:27 03/14/20 23:24 03/15/20 08:53 03/15/20 16:57 White Blood Count 5.8 10^3/uL (4.5-11.0) 4.8 10^3/uL (4.5-11.0) Red Blood Count 2.66 10^6/uL (4.50-5.90) 2.60 10^6/uL (4.50-5.90) Hemoglobin 8.1 g/dL (13.9-16.3) 7.3 g/dL (13.9-16.3) 8.0 g/dL (13.9-16.3) Hematocrit 26.0 % (37.0-53.0) 25.5 % (37.0-53.0) Mean Corpuscular Volume 97.7 fL (78-100) 98.1 fL (78-100) Mean Corpuscular Hemoglobin 30.5 pg (26-34) 30.8 pg (26-34) Mean Corpuscular Hemoglobin Concent 31.2 g/dL (33-36.5) 31.4 g/dL (33-36.5) Red Cell Distribution Width 19.3 % (11.5-14.5) 18.6 % (11.5-14.5) Platelet Count 160 10^3/uL (150-400) 150 10^3/uL (150-400) Mean Platelet Volume 11.4 fL (7.8-11.0) 11.2 fL (7.8-11.0) Sodium Level 133 mmol/L (132-145) 136 mmol/L (132-145) Potassium Level 3.1 mmol/L (3.6-5.2) 3.2 mmol/L (3.6-5.2) Chloride Level 94.0 mmol/L (96-109) 93.0 mmol/L (96-109) Carbon Dioxide Level 40.9 mmol/L (20.0-32) 40.5 mmol/L (20.0-32) Anion Gap 1.2 5.7 Blood Urea Nitrogen 26 mg/dL (7-18) 24 mg/dL (7-18) Creatinine 1.14 mg/dL (0.59-1.40) 1.17 mg/dL (0.59-1.40) Estimated GFR () 73.2 (>/=60) 71.0 (>/=60) Est GFR (CKD-EPI)(Non-Afr Fijian) 60.5 (>/=60) 58.7 (>/=60) BUN/Creatinine Ratio 22.0 20.0 Glucose Level 98 mg/dL (70-110) 104 mg/dL (70-110) Calcium Level 8.1 mg/dL (8.4-10.5) 8.4 mg/dL (8.4-10.5) Total Bilirubin 0.9 mg/dL (0.2-1.0) 0.9 mg/dL (0.2-1.0) Aspartate Amino Transf (AST/SGOT) 18 U/L (0-35) 15 U/L (0-35) Alanine Aminotransferase (ALT/SGPT) 13 U/L (12-78) 9 U/L (12-78) Alkaline Phosphatase 148 U/L (50-136) 133 U/L (50-136) Total Protein 6.3 g/dL (6.4-8.2) 6.0 g/dL (6.4-8.2) Albumin 2.3 g/dL (3.4-5.0) 2.3 g/dL (3.4-5.0) Globulin 4.0 3.7 Albumin/Globulin Ratio 0.575 0.621 Blood Gas Sample Site RT BRACIAL ARTERY Blood Gas pH 7.450 (7.350-7.450) Blood Gas PCO2 64.2 mmHg (35.0-45.0) Blood Gas PO2 94.5 mmHg (80.0-100.0) Blood Gas HCO3 43.6 mmol/L (22.0-26.0) Blood Gas Base Excess 17.3 mmol/L (-2.0-2.0) Bin Test N/A Arterial Blood Oxygen Saturation 97.0 % (94.0-97.00) Deoxyhemoglobin 3.0 % (0.0-5.0) Carboxyhemoglobin 0.6 % (0.0-3.9) Methemoglobin 0.2 % (0.00-5.0) Total Hemoglobin 9.2 % (12.0-17.8) Total Oxygen Concentration 12.6 % (13.5-17.5) Oxygen Delivery Method (LAB) NASAL CANNULA FiO2 28 % (20-101) Total Carbon Dioxide 45.6 mmol/L (23-27) Test 12/23/20 22:21 03/16/20 06:00 03/18/20 05:51 Hemoglobin 8.1 g/dL (13.9-16.3) 8.3 g/dL (13.9-16.3) 8.5 g/dL (13.9-16.3) White Blood Count 4.8 10^3/uL (4.5-11.0) 4.6 10^3/uL (4.5-11.0) Red Blood Count 2.72 10^6/uL (4.50-5.90) 2.71 10^6/uL (4.50-5.90) Hematocrit 27.0 % (37.0-53.0) 27.0 % (37.0-53.0) Mean Corpuscular Volume 99.3 fL (78-100) 99.6 fL (78-100) Mean Corpuscular Hemoglobin 30.5 pg (26-34) 31.4 pg (26-34) Mean Corpuscular Hemoglobin Concent 30.7 g/dL (33-36.5) 31.5 g/dL (33-36.5) Red Cell Distribution Width 17.8 % (11.5-14.5) 16.9 % (11.5-14.5) Platelet Count 158 10^3/uL (150-400) 145 10^3/uL (150-400) Mean Platelet Volume 11.2 fL (7.8-11.0) 11.2 fL (7.8-11.0) Sodium Level 134 mmol/L (132-145) 136 mmol/L (132-145) Potassium Level 3.1 mmol/L (3.6-5.2) 4.1 mmol/L (3.6-5.2) Chloride Level 93.0 mmol/L (96-109) 96.0 mmol/L (96-109) Carbon Dioxide Level 41.0 mmol/L (20.0-32) 36.7 mmol/L (20.0-32) Anion Gap 3.1 7.4 Blood Urea Nitrogen 24 mg/dL (7-18) 22 mg/dL (7-18) Creatinine 1.13 mg/dL (0.59-1.40) 1.26 mg/dL (0.59-1.40) Estimated GFR () 73.9 (>/=60) 65.2 (>/=60) Est GFR (CKD-EPI)(Non-Afr Fijian) 61.1 (>/=60) 53.9 (>/=60) BUN/Creatinine Ratio 21.0 17.0 Glucose Level 97 mg/dL (70-110) 91 mg/dL (70-110) Calcium Level 8.3 mg/dL (8.4-10.5) 8.5 mg/dL (8.4-10.5) Magnesium Level 1.4 mg/dL (1.8-2.4) Total Bilirubin 0.7 mg/dL (0.2-1.0) 0.9 mg/dL (0.2-1.0) Aspartate Amino Transf (AST/SGOT) 18 U/L (0-35) 17 U/L (0-35) Alanine Aminotransferase (ALT/SGPT) 9 U/L (12-78) 9 U/L (12-78) Alkaline Phosphatase 125 U/L (50-136) 117 U/L (50-136) Total Protein 6.1 g/dL (6.4-8.2) 5.9 g/dL (6.4-8.2) Albumin 2.2 g/dL (3.4-5.0) 2.2 g/dL (3.4-5.0) Globulin 3.9 3.7 Albumin/Globulin Ratio 0.564 0.594 Blood Bank Test 03/13/20 18:05 Antibody Screen NEGATIVE Blood Product Summary Counts Blood Type B NEGATIVE Hospital Course Severe anemia The patient did not show any signs of acute blood loss/GI bleeding. No melena or hematemesis. he Might have GI bleeding before arriving to the hospital. He was given 1 unit of blood and then hemoglobin remained stable during hospital stay. Because of his heart failure hemoglobin goal should be above 8. And because of his age he will not be able to improve his hemoglobin level quickly. Seems that he has anemia of chronic disease as well. #Acute on chronic CHF: The patient showed severe fluid overload due to systolic heart failure in addition to right-sided heart failure. Has moderate to large bilateral effusion along with severe edema up to the thighs. Gave him Lasix intravenously and his edema improved dramatically. We adjusted his medication as mentioned in the assessment section. Condition/Impression Assessment/Plan # Severe Anemia: It is multifactorial. There is no evidence of upper GI bleeding by observation during hospital stay. His hemoglobin remained stable after transfusion. Given his age and comorbidity he has baseline anemia of chronic disease. And he has had previous history of GI bleeding. plan: -He will need CBC in 1 week - We will stop the Eliquis. - I am not sure if he had any colonoscopy done in the past but he might need colonoscopy as outpatient # Acute on Chronic Systolic CHF exacerbation: He is stable on 2 L nasal cannula. He feels weak in general. He is not active at baseline. his fluid status is getting better. the edema is less. plan: - We will increase his home dose of Bumex to 2 mg p.o. daily. -Continue Coreg 3.125 mg twice daily. -c/w lisinopril 5 mg p.o. daily. -c/w Spironolactone 12.5 mg daily -Follow-up with cardiology as outpatient. # Refractory Hypokalemia: Hypokalemia was difficult to correct in the first few days but improved when we added lisinopril and spironolactone. He will not be discharged on potassium supplements due to concern of hyperkalemia. -Please repeat BMP in 3 days after discharge. #Bilateral pleural effusion: Most likely secondary to CHF. We will continue diuresis Bumex. No need for therapeutic thoracentesis at this point. # Chronic A. fib: EKG showed paced rhythm. Giving the history of severe anemia and GI bleeding we will stop Eliquis. #Metabolic alkalosis due to CO2 retention/respiratory acidosis: He does not have history of COPD and no signs of bronchospasm. Has a barrel shaped chest possibly has air trapping leading to CO2 retention. These findings are chronic. #Moderate to severe Malnutrition: Widespread muscle wasting. Nutrition assessment RD Comments: 1. Continue pureed diet as tolerated, encouraging po intake of calorically dense foods consistent with diet order. 2. Continue Ensure Enlive TID. Encourage food at meals and ensure between meals. 3. Recommend Yahir BID to promote healing of pressure ulcer. 4. Continue iron and folic acid supplementation and monitor. 5. Monitor electrolytes and correct as indicated. 6. Monitor I/O and weight. - frequent weights RD to monitor po intake, weight, labs, and care plan. Expected Outcomes 75-100% po intake of meals to meet estimated needs the next 3 days. Discharge on cardiac/soft diet. # Macrocytosis # Iron Deficiency # folate deficiency #BPH - continue home flomax, sertraline, lipitor, vitamin C, and iron supplement - will start PO Folate 1g daily for folate deficiency CODE:DNR Diet 1. Continue pureed diet as tolerated, encouraging po intake of calorically dense foods consistent with diet order. 2. Continue Ensure Enlive TID. Encourage food at meals and ensure between meals. Expected Outcomes 75-100% po intake of meals to meet estimated needs the next 3 days. Follow-up Instructions Follow up with PCP in 1 week. Follow up with cardiology in 2-3 weeks. Please refer the patient to dentist. Please do BMP in 3 days. JIHAN CONNER MD Mar 18, 2020 09:44
[2020-03-18] MEDS: ALDACTONE PO SCH (10:02)
[2020-03-18 11:55] VITALS: BP 86/44
[2020-03-18 12:39] VITALS: BP 105/58
[2020-03-18 14:48] VITALS: BP 105/58
== END 2020-03-18 14:48 | DRG 291 ==
LOC: ER 17:53 → EDUNIT# 17:53 → EDBD 17:53 → MS 19:52
PROVIDERS: ADMIT Internal Medicine; ATTEND Internal Medicine
PROC: 30233N1 Transfusion of Nonautologous Red Blood Cells into Peripheral Vein, Percutaneous Approach (ICD-10-PCS; principal; 2020-03-13)
DX: I11.0 Hypertensive heart disease with heart failure (principal); E43 Unspecified severe protein-calorie malnutrition; E87.3 Alkalosis; I31.3 Pericardial effusion (noninflammatory); I50.23 Acute on chronic systolic (congestive) heart failure; Z66 Do not resuscitate; E53.8 Deficiency of other specified B group vitamins; Z79.01 Long term (current) use of anticoagulants; I48.91 Unspecified atrial fibrillation; D50.9 Iron deficiency anemia, unspecified; D63.8 Anemia in other chronic diseases classified elsewhere; I08.1 Rheumatic disorders of both mitral and tricuspid valves; D75.89 Other specified diseases of blood and blood-forming organs; E78.5 Hyperlipidemia, unspecified; E87.6 Hypokalemia; N40.0 Benign prostatic hyperplasia without lower urinary tract symptoms; I25.10 Atherosclerotic heart disease of native coronary artery without angina pectoris; I27.29 Other secondary pulmonary hypertension; I50.82 Biventricular heart failure; Z79.899 Other long term (current) drug therapy; Z88.0 Allergy status to penicillin; Z68.27 Body mass index [BMI] 27.0-27.9, adult
CPT/HCPCS: 36415; 36430; 36600; 71045; 71250; 80053; 82272; 82550; 82553; 82607; 82746; 82803; 83540; 83735; 83880; 84100; 84484; 85014; 85018; 85025; 85027; 85060; 85610; 85730; 86885; 86900; 86901; 86923; 93005; 93306; 99291; C9113; G0378; J1940; J2060; J2360; J3475; J7040; J7050; P9016; A6212; A9270; J3480

== ENCOUNTER → 2020-03-13 | Outpatient (CLI) | payer MEDICARE ==
[~2020-03-13] MED LIST: APIX5TAB PO; ASCO500T4 PO; BUME1TAB3 PO; ELEC1000 PO; FERR325T98 PO; GABA100C7 PO; LACT1CAP4 PO; METO5TAB5 PO; PANT40TA3 PO; SERT25TA PO; SIMV20TA19 PO; TAMS-14 PO; ZINC50TA42 PO
[2020-03-13 16:31] LABS: MEAN CORP HGB 31.9 pg (26-34); RED CELL DISTRIBUTION WIDTH 15.8 % (11.5-14.5)
[2020-03-13 16:52] LABS: CALCIUM 7.9 mg/dL (8.4-10.5); CARBON DIOXIDE 40.8 mmol/L (20.0-32)
== END | disposition home or self-care (01) ==
LOC: NPLAB 14:43
PROVIDERS: ATTEND Family Medicine
DX: N17.9 Acute kidney failure, unspecified (principal); I50.9 Heart failure, unspecified
CPT/HCPCS: 36415; 80053; 85027

== ENCOUNTER 2020-04-01 13:05 | Emergency (ER) | payer MEDICARE ==
[~2020-04-01] VITALS: Ht 167.6 cm; Wt 68.0 kg
[~2020-04-01 13:05] MED LIST changes: -LISI-414 PO; +LISI-593 PO
--- NOTE | 2020-04-01 13:09 | NUR ---
ARRIVAL PT ARRIVED TO ED WITH C/O HEMAGLOBIN LEVEL 6.6 WITH ROUTINE BLOOD WORK. BEDSIDE MONITORS APPLIED. VITAL SIGNS STABLE. PT C/O PAIN TO BUTTOCKS AND LEFT HEAL, HE HAS TREATED ULCERS IN BOTH PLACED. 18G IV PLACED TO LEFT AC BY EMS WITH FENTANYL 50MCG AND ZOFRAN 4MG ADMINISTERED BY EMS. BED IN LOW LOCKED POSITION.
[2020-04-01 13:22] VITALS: BP 104/48
--- NOTE | 2020-04-01 14:15 | NUR ---
DEJUAN DOCTOR JOSE ON THE PHONE WITH DOCTOR ZAIDI DISCUSSING PATIENT ADMISSION
--- NOTE | 2020-04-01 14:30 | NUR ---
BSA ACCEPTANCE DR RIOS AT [facility] ACCEPTED ER TO ER. TIM BEASLEY.
--- NOTE | 2020-04-01 14:53 | NUR ---
FAMILY NOTIFICATION SON SHARRI NOTIFIED OF TRANSFER TO [facility].
--- NOTE | 2020-04-01 14:56 | ER.PDOC ---
General Chief Complaint: General Complaint Stated Complaint: CRITICAL LAB TRAVEL OUT OF US: No Time seen by MD: 14:49 Source: EMS notes reviewed, [facility] records History of Present Illness Initial Comments Patient sent from the [facility] for a hemoglobin of 6.6. Patient was admitted here two and half weeks ago for Anemia and GI bleed. He was transfused and sent home to follow up with GI for outpatient EGD and Colonoscopy. He has not followed up since then and his hemoglobin has dropped again. Severity: moderate Associated Symptoms: denies symptoms Allergies: Coded Allergies: Penicillins (Verified Allergy, Intermediate, Rash, 03/13/20) Home Meds Active Scripts [Folic Acid] 1 MG TABLET No Conflict Check, 1 MG PO DAILY for 30 Days Prov:JIHAN CONNER MD 03/18/20 Quetiapine Fumarate (SEROQUEL) 25 Mg Tablet, 25 MG PO HS for 30 Days, TAB Prov:JIHAN CONNER MD 03/18/20 Spironolactone 25MG (ALDACTONE 25MG) 25 Mg Tablet, 12.5 MG PO DAILY for 30 Days, TAB Prov:JIHAN CONNER MD 03/18/20 Lisinopril (LISINOPRIL) 5 Mg Tablet, 5 MG PO DAILY for 30 Days, TAB Prov:JIHAN CONNER MD 03/18/20 Carvedilol (CARVEDILOL) 3.125 Mg Tablet, 3.125 MG PO BID for 30 Days, TAB Prov:JIHAN CONNER MD 03/18/20 Bumetanide (BUMETANIDE) 1 Mg Tablet, 2 TAB PO DAILY for 30 Days, #90 TAB 1 Refill Prov:JIHAN CONNER MD 03/18/20 Reported Medications Gabapentin (GABAPENTIN) 100 Mg Capsule, 1 CAP PO BID for PAIN, #90 CAP 2 Refills 03/13/20 Ascorbic Acid (VITAMIN C) 500 Mg Tablet, 500 MG PO BID 03/13/20 Ferrous Sulfate (FERROUSUL) 325 Mg Tablet, 1 TAB PO QD for 30 Days, #30 TAB 0 Refills 03/13/20 Sertraline Hcl (ZOLOFT) 25 Mg Tablet, 1 TAB PO DAILY, #30 TAB 1 Refill 03/13/20 Pantoprazole Sodium (PROTONIX) 40 Mg Tablet.dr, 1 TAB PO DAILY, #30 TAB 5 Refills 03/13/20 Lactobacillus Acidophilus (ACIDOPHILUS) 1 Each Capsule, 1 CAP PO QD for 14 Days, #14 CAP 0 Refills 03/13/20 Simvastatin (SIMVASTATIN) 20 Mg Tablet, 1 TAB PO HS, #30 TAB 5 Refills 03/13/20 Tamsulosin Hcl (FLOMAX) 0.4 Mg Cap.er.24h, 1 CAP PO DAILY, #30 CAP 11 Refills 03/13/20 Zinc (ZINC) 50 Mg Tablet, 1 TAB PO QD for 30 Days, #30 TAB 0 Refills 03/13/20 Metolazone (ZAROXOLYN) 5 Mg Tablet, 5 MG PO DAILY24, TABLET 03/13/20 Past Medical History Medical History: arrhythmia, cardiac problems, congestive heart failure, GERD, hypertension Surgical History: pacemaker/ICD Social History Smoking: non-smoker Alcohol Use: none Drug Use: none Review of Systems Constitutional: no symptoms reported EENTM: see HPI Respiratory: no symptoms reported Cardiovascular: no symptoms reported Gastrointestinal: no symptoms reported Genitourinary: no symptoms reported All Other Systems: Reviewed and Negative Physical Exam General Appearance: No Apparent Distress, WD/WN EENT: other (pale conjunctivae) Respiratory: chest non-tender, lungs clear, normal breath sounds, no respiratory distress, no accessory muscle use CVS: reg rate & rhythm, no murmur, no gallop, pulses nml, nml capillary refill Gastrointestinal: Normal Bowel Sounds, No Organomegaly, No Pulsatile Mass, Non Tender Extremities: Normal Range of Motion, Pedal Edema Neurologic/Psychiatric: relay associate II-XII NML as Tested, No Motor/Sensory Deficits, Alert, Normal Mood/Affect Skin: Pallor Lymphatic: No Adenopathy Results/Orders Results/Orders Vital Signs Date Time Temp Pulse Resp B/P (MAP) Pulse Ox O2 Delivery O2 Flow Rate FiO2 04/01/20 13:22 97.8 70 20 104/48 (66) 95 Room Air 04/01/20 13:22 97.8 70 20 95 04/01/20 13:22 97.8 70 20 03/18/20 08:39 70 Progress Progress Spoke with Dr. Esquivel who requested declined to admit the patient. He wants patient transferred for GI and Email Marketing Intern. ER DEPART Departure Time of Disposition: 14:55 Disposition: 02 XFER SHT-TRM HOSP Impression: Primary Impression: Anemia Additional Impressions: DISHA (acute kidney injury) GI bleed Condition: Stable Referrals: VALE PAULINO (PCP) PRIMARY CARE PROVIDER Comments Transfer to [facility] ED for Dr. Loyd Duration or Time Spent with Pa: 30 min Critical Care Note Total Time (mins): 30 Problem Qualifiers Primary Impression: Anemia Anemia type: unspecified type Qualified Codes: D64.9 - Anemia, unspecified Additional Impressions: GI bleed GI bleed type/associated pathology: unspecified gastrointestinal hemorrhage type Qualified Codes: K92.2 - Gastrointestinal hemorrhage, unspecified ED GARCIA MD Apr 01, 2020 14:56
--- NOTE | 2020-04-01 14:56 | NUR ---
FACESHEET FACESHEET FAXED TO [facility].
[2020-04-01] MEDS ORDERED: HNS 1000ML 1,000 ML IV STA (14:57)
[2020-04-01] MEDS ORDERED: PROTONIX IV IV STA ×2 (14:57→15:11)
--- NOTE | 2020-04-01 14:59 | NUR ---
[facility] CALLED FOR TRANSFER.
[2020-04-01] MEDS ORDERED: PROTONIX IV IV ONE (15:01)
[2020-04-01] MEDS ORDERED: NS 1000ML 1,000 ML ONE (15:01)
[2020-04-01] MEDS ORDERED: NS 1000ML 1,000 ML IV STA (15:03)
--- NOTE | 2020-04-01 15:15 | NUR ---
REPORT REPORT CALLED TO ARMANI DEL ROSARIO AT [facility].
[2020-04-01 15:55] VITALS: BP 107/53
== END 2020-04-01 16:05 | disposition short-term general hospital (02) ==
LOC: EDBD 13:05 → ER 13:05
DX: D64.9 Anemia, unspecified (principal); K21.9 Gastro-esophageal reflux disease without esophagitis; I50.9 Heart failure, unspecified; I11.0 Hypertensive heart disease with heart failure; E86.0 Dehydration; K92.2 Gastrointestinal hemorrhage, unspecified; N17.9 Acute kidney failure, unspecified; Z79.899 Other long term (current) drug therapy; Z95.0 Presence of cardiac pacemaker; Z88.0 Allergy status to penicillin
CPT/HCPCS: 96361; 96374; 99291; C9113; J7030; 96360

== ENCOUNTER → 2020-04-01 | Outpatient (CLI) | payer MEDICARE ==
[~2020-04-01] MED LIST changes: +CARV3.122 PO; +Folic Acid PO; +LISI-414 PO; +QUET25TA5 PO; +SPIR25TA PO
[2020-04-01 06:53] LABS: BASOPHIL % 0.7 % (0.0-0.2); EOSINOPHIL # 0.2 10^3/uL (0.0-0.2); EOSINOPHIL % 5.1 % (0.0-5.0); LYMPHOCYTES # 0.75 10^3/uL1 (1.0-4.8); LYMPHOCYTES % 18.2 % (24.0-44.0); MEAN CORP HGB 30.4 pg (26-34); MONOCYTES # 0.5 10^3/uL (0.3-0.8); MONOCYTES % 10.9 % (5.0-12.0); NEUTROPHIL # 2.7 10^3/uL (1.8-7.7); NEUTROPHILS % 64.6 % (41.0-85.0); PLATELET COUNT 171 10^3/uL (150-400); RED CELL DISTRIBUTION WIDTH 14.2 % (11.5-14.5)
[2020-04-01 07:29] LABS: CALCIUM 7.8 mg/dL (8.4-10.5); CARBON DIOXIDE 29.9 mmol/L (20.0-32)
== END | disposition home or self-care (01) ==
LOC: NPLAB 05:15
PROVIDERS: ATTEND Family Medicine
DX: K92.2 Gastrointestinal hemorrhage, unspecified (principal); I50.9 Heart failure, unspecified; N17.9 Acute kidney failure, unspecified; I10 Essential (primary) hypertension
CPT/HCPCS: 80053; 85025